=== PATIENT | female | born 1940 | race Caucasian/White ===

== ENCOUNTER 2017-04-29 12:09 | Inpatient (IN) | payer OTHER, MEDICARE ==
[~2017-04-29] VITALS: Ht 154.9 cm; Wt 52.0 kg
[2017-04-29 12:10] VITALS: BP 188/95; PULSE 91; RESP 18; TEMP 99.1; O2SAT 99
[2017-04-29 12:56] VITALS: O2SAT 98
[2017-04-29] MEDS ORDERED: ACETAMINOPHEN/HYDROcodone 325 MG/7.5 MG TAB PO ONE (13:00)
[2017-04-29] MEDS ORDERED: SODIUM CHLORIDE 0.9% FLUSH 10 ML FLUSH IVF PRN (13:00)
--- NOTE | 2017-04-29 13:05 | PD ---
HPI Chief Complaint: Medical Clearance Time Seen by Provider: 12:48 Travel History International Travel<30 days: No Contact w/Intl Traveler<30days: No Traveled to known affect area: No History of Present Illness HPI 77-year-old female brought in from home after being seen by her orthopedist, Dr. Carr, after reading her x-rays done yesterday at [facility] showing a right femoral neck fracture, and right scapular fracture status post fall 1 week ago. Patient has not had any pain medications prior to this. She is otherwise in no acute distress. She's been functioning at home since her fall. She states no other significant medical history. He denies abdominal pain, chest pain, shortness of breath. She denies numbness or tingling in the right lower extremity. She states no head injury, headache, loss of consciousness, dizziness, or other symptoms. Pain is currently 8 out of 10. Patient arrived with admission orders from Dr. Carr, but she is awaiting mental placement after medical clearance here in the ED. She has no known drug allergies. [facility] Social History Alcohol Use: No Tobacco Use: No Allergies-Medications (Allergen,Severity, Reaction): Coded Allergies: No Known Allergies (Unverified , 04/29/17) Review of Systems Except as stated in HPI: all other systems reviewed are Neg General / Constitutional: No: Fever Eyes: No: Visual changes HENT: No: Headaches Cardiovascular: No: Chest Pain or Discomfort Respiratory: No: Shortness of Breath Gastrointestinal: No: Abdominal Pain Genitourinary: No: Dysuria Musculoskeletal: Positive: Myalgias, Arthralgias, Limited ROM, Pain Skin: No Rash Neurologic: No: Weakness Psychiatric: No: Depression Endocrine: No: Polydipsia Hematologic/Lymphatic: No: Easy Bruising Physical Exam Narrative GENERAL: Patient appears in mild distress. SKIN: Warm and dry. Color. Normal turgor. No rash. HEAD: Atraumatic. Normocephalic. Nontender. EYES: Pupils equal and round. No scleral icterus. No injection or drainage. ENT: No nasal bleeding or discharge. Mucous membranes pink and moist. Pharynx is clear. Airway is patent. NECK: Trachea midline. Supple nontender. CARDIOVASCULAR: Regular rate and rhythm. RESPIRATORY: No accessory muscle use. Clear to auscultation. Breath sounds equal bilaterally. GASTROINTESTINAL: Abdomen soft, non-tender, nondistended. Hepatic and splenic margins not palpable. MUSCULOSKELETAL: Extremities without clubbing, cyanosis, or edema. Right lower extremity is somewhat shortened and internally rotated. Age motion is significantly limited secondary to pain in the right hip. Patient also has pain in the right posterior shoulder consistent with her diagnosed injury. Movement of the right upper extremity in terms of her elbow and hand and wrist is normal. Strength is normal both upper extremities. NEUROLOGICAL: Awake and alert. No obvious cranial nerve deficits. Motor grossly within normal limits. Five out of 5 muscle strength in the arms and legs. Normal speech. PSYCHIATRIC: Appropriate mood and affect; insight and judgment normal. Data Data Last Documented VS Vital Signs Date Time Temp Pulse Resp B/P (MAP) Pulse Ox O2 Delivery O2 Flow Rate FiO2 04/29/17 12:56 98 04/29/17 12:10 99.1 91 18 Room Air Orders Orders Electrocardiogram (04/29/17 12:52) Complete Blood Count With Diff (04/29/17 12:52) Comprehensive Metabolic Panel (04/29/17 12:52) Prothrombin Time / Inr (Pt) (04/29/17 12:52) Act Partial Throm Time (Ptt) (04/29/17 12:52) Urinalysis - C+S If Indicated (04/29/17 12:52) Chest, Single Ap (04/29/17 12:52) Iv Access Insert/Monitor (04/29/17 12:52) Oximetry (04/29/17 12:52) Ecg Monitoring (04/29/17 12:52) Sodium Chloride 0.9% Flush (Ns Flush) (04/29/17 13:00) Acetamin-Hydrocod 325-7.5 Mg ([place] 7.5 (04/29/17 13:00) Diet Regular Basic (04/29/17 Lunch) Urine Culture (04/29/17 13:00) Ceftriaxone Inj (Rocephin Inj) (04/29/17 14:00) Admit Order (Ed Use Only) (04/29/17 13:45) Labs Laboratory Tests Test 04/29/17 13:00 White Blood Count 6.3 TH/MM3 Red Blood Count 4.70 MIL/MM3 Hemoglobin 14.2 GM/DL Hematocrit 42.8 % Mean Corpuscular Volume 91.1 FL Mean Corpuscular Hemoglobin 30.3 PG Mean Corpuscular Hemoglobin Concent 33.2 % Red Cell Distribution Width 15.1 % Platelet Count 302 TH/MM3 Mean Platelet Volume 7.2 FL Neutrophils (%) (Auto) 70.1 % Lymphocytes (%) (Auto) 19.9 % Monocytes (%) (Auto) 7.6 % Eosinophils (%) (Auto) 1.4 % Basophils (%) (Auto) 1.0 % Neutrophils # (Auto) 4.4 TH/MM3 Lymphocytes # (Auto) 1.3 TH/MM3 Monocytes # (Auto) 0.5 TH/MM3 Eosinophils # (Auto) 0.1 TH/MM3 Basophils # (Auto) 0.1 TH/MM3 CBC Comment DIFF FINAL Differential Comment Prothrombin Time 10.7 SEC Prothromb Time International Ratio 1.0 RATIO Activated Partial Thromboplast Time 28.4 SEC Urine Color YELLOW Urine Turbidity HAZY Urine pH 6.0 Urine Specific [place] 1.019 Urine Protein 30 mg/dL Urine Glucose (UA) NEG mg/dL Urine Ketones NEG mg/dL Urine Occult Blood NEG Urine Nitrite NEG Urine Bilirubin NEG Urine Urobilinogen LESS THAN 2.0 MG/DL Urine Leukocyte Esterase LARGE Urine RBC 7 /hpf Urine WBC 94 /hpf Urine WBC Clumps FEW Urine Squamous Epithelial Cells 19 /hpf Urine Transitional Epithelial Cells <1 /hpf Urine Bacteria FEW /hpf Urine Hyaline Casts 2 /lpf Urine Mucus FEW /lpf Microscopic Urinalysis Comment CATH-CULTURE IND Blood Urea Nitrogen 16 MG/DL Creatinine 1.07 MG/DL Random Glucose 113 MG/DL Total Protein 7.4 GM/DL Albumin 3.3 GM/DL Calcium Level 8.9 MG/DL Alkaline Phosphatase 131 U/L Aspartate Amino Transf (AST/SGOT) 16 U/L Alanine Aminotransferase (ALT/SGPT) 22 U/L Total Bilirubin 0.3 MG/DL Sodium Level 141 MEQ/L Potassium Level 3.3 MEQ/L Chloride Level 110 MEQ/L Carbon Dioxide Level 21.5 MEQ/L Anion Gap 10 MEQ/L Estimat Glomerular Filtration Rate 50 ML/MIN [facility] Medical Decision Making Medical Screen Exam Complete: Yes Emergency Medical Condition: Yes Medical Record Reviewed: Yes Differential Diagnosis Recent fall. Right hip fracture. Right clavicle fracture. Narrative Course Patient appears medically stable at time of exam. EKG is ordered. EKG shows sinus rhythm without significant changes. Chest x-ray is ordered. Laboratory includes CBC, CMP, urinalysis, and IV access is obtained. Patient declined Rich catheter to this time. Patient is given Lortab 7.5/325 by mouth. Regular diet is ordered. Once patient is medically cleared she'll be admitted for orthopedic surgery. CBC is unremarkable. Coagulation studies are unremarkable. CMP unremarkable except for potassium 3.3, creatinine is 1.07, GFR 50, random glucose 113, and slightly low at 3.3. Patient is given 20 mEq KCl by mouth. Urinalysis shows large WBCs, with 94 WBCs per high-power field. Patient is given Rocephin 1000 mg IV. Call was placed to the hospitalist residents for admission. Diagnosis Primary Impression: Closed right hip fracture Qualified Codes: S72.001A - Fracture of unspecified part of neck of right femur, initial encounter for closed fracture Additional Impressions: Closed right scapular fracture Qualified Codes: S42.101A - Fracture of unspecified part of scapula, right shoulder, initial encounter for closed fracture Urinary tract infection Qualified Codes: N30.00 - Acute cystitis without hematuria Admitting Information Admitting Physician Requests: Admit Condition: Stable Heriberto Claire Apr 29, 2017 13:05
[2017-04-29 13:21] LABS: AUTOMATED NEUTROPHIL # 4.4 TH/MM3 (1.8-7.7); BASOPHIL # 0.1 TH/MM3 (0-0.2); EOSINOPHIL # 0.1 TH/MM3 (0-0.4); EOSINOPHIL % 1.4 % (0.0-4.0); HEMATOCRIT 42.8 % (35.0-46.0); HEMO FLAGS DIFF FINAL; LYMPH % 19.9 % (9.0-44.0); LYMPHOCYTE # 1.3 TH/MM3 (1.0-4.8); MEAN CELL VOLUME 91.1 FL (80.0-100.0); MEAN CORPUSCULAR HEMOGLOBIN 30.3 PG (27.0-34.0); MEAN CORPUSCULAR HGB CONC 33.2 % (32.0-36.0); MONO % 7.6 % (0.0-8.0); NEUT % 70.1 % (16.0-70.0); PLATELET COUNT 302 TH/MM3 (150-450); RED CELL DISTRIBUTION WIDTH 15.1 % (11.6-17.2); WHITE BLOOD COUNT 6.3 TH/MM3 (4.0-11.0)
--- NOTE | 2017-04-29 13:23 | RADRPT ---
EXAM DATE/TIME: 04/29/2017 13:16 [facility] COMPARISON: No previous studies available for comparison. INDICATIONS : Evaluate for pneumonia, pneumothorax, or communicable disease. Pre-op for hip surgery 04/30/2017. MEDICAL HISTORY : Crohn's disease. SURGICAL HISTORY : Colon resection. ENCOUNTER: Initial ACUITY: 1 day PAIN SCORE: 0/10 LOCATION: Bilateral chest FINDINGS: A single view of the chest demonstrates the lungs to be symmetrically aerated without evidence of mas s, infiltrate or effusion. There is hyperaeration of the lung porras bilaterally. The cardiomediasti nal contours are unremarkable. Osseous structures are intact. CONCLUSION: No acute disease. Rodo Drummond MD on April 29, 2017 at 13:21 Board Certified Radiologist. This report was verified electronically.
[2017-04-29 13:26] LABS: BACTERIA, URINE FEW /hpf; BLOOD, URINE NEG (NEG); COMMENT (UR) CATH-CULTURE IND; CULTURE IF INDICATED CATH CULTURE IND; GLUCOSE,URINE NEG (NEG); HYALINE CAST, URINE 2 /lpf (RARE); KETONE, URINE NEG (NEG); MUCUS URINE FEW /lpf (OCC); NITRITE,URINE NEG (NEG); SQUAMOUS EPITHELIAL CELL URINE 19 /hpf (0-5); TRANSITIONAL EPI CELLS, URINE <1 /hpf; URINE COLOR YELLOW (YELLW/STRAW)
[2017-04-29 13:30] LABS: ALT (GPT) 22 U/L (10-53); ANION GAP 10 MEQ/L (5-15); APTT (PATIENT) 28.4 SEC (24.3-30.1); AST (GOT) 16 U/L (15-37); BICARBONATE 21.5 MEQ/L (21.0-32.0); BLOOD UREA NITROGEN 16 MG/DL (7-18); CHLORIDE 110 MEQ/L (98-107); GLOMERULAR FILTRATION RATE 50 ML/MIN (>89); POTASSIUM 3.3 MEQ/L (3.5-5.1); PROTHROMBIN TIME - PATIENT 10.7 SEC (9.8-11.6); SODIUM (NA) 141 MEQ/L (136-145)
[2017-04-29 13:33] LABS: ALKALINE PHOSPHATASE 131 U/L (45-117); TOTAL BILIRUBIN ADULT 0.3 MG/DL (0.2-1.0)
[2017-04-29] MEDS ORDERED: cefTRIAXone INJ 1,000 MG in SODIUM CHLORIDE 0.9% INJ 100 ML IV ONE (14:00)
--- NOTE | 2017-04-29 14:06 | HHI.HP ---
HPI Service Family Medicine Primary Care Physician Unknown Admission Diagnosis Right hip Fracture/Right Scapular fracture/UTI Diagnoses: International Travel<30 Days: No Contact w/Intl Traveler<30days: No Known Affected Area: No History of Present Illness slipped on her kitchen floor and broke her right femur and scapula on 04/22. She landed on her right side, hit her head, shoulder, and hip. Went to her PCP a few days later, who [facility] who took XRs. She was referred to Ortho. She saw him today who sent her to the hospital for surgery. Her shoulder has been sore. She has full ROM, no numbness/tingling, no weakness. It has been hard to walk so has been using 's old walker. Right leg feels weak, like it can't hold her weight. No numbness, but has tingling. Pain with any movement of her right leg. radiates down her medial leg to her foot. Tried Tylenol that helped a little. 10/21, throbbing like pain. Review of Systems Constitutional: DENIES: Fever, Chills Eyes: DENIES: Blurred vision Ears, nose, mouth, throat: COMPLAINS OF: Running Nose (allergies), DENIES: Tinnitus, Vertigo Respiratory: DENIES: Cough, Wheezing, Shortness of breath Cardiovascular: DENIES: Chest pain, Lower Extremity Edema Gastrointestinal: COMPLAINS OF: Diarrhea (Crohn's dz), DENIES: Abdominal pain Genitourinary: DENIES: Urinary frequency, Urgency, Dysuria Musculoskeletal: DENIES: Joint Swelling Integumentary: DENIES: Rash Neurologic: DENIES: Headache Past Family Social History Past Medical History HTN Crohn's dz- no recent flares Depression Anxiety Hyperlipidemia Past Surgical History 3x colectomies hemorrhoidectomy D&C- miscarriage appendectomy cholecystectomy broken wrists and ankles Allergies: Coded Allergies: No Known Allergies (Unverified , 04/29/17) Family History Sister- colon cancer Social History Lives in [place] for a yr, from [place] alcohol- rarely cigarettes- quit 2 years, 1 ppd for 50 yrs illicit drugs- none Physical Exam Vital Signs Vital Signs Date Time Temp Pulse Resp B/P (MAP) Pulse Ox O2 Delivery O2 Flow Rate FiO2 04/29/17 12:56 98 10/17/17 12:10 99.1 91 18 188/95 (126) 99 Room Air Physical Exam GENERAL: This is a well-nourished, well-developed patient, in no apparent distress. SKIN: No rashes, ecchymoses or lesions. Cool and dry. HEAD: Atraumatic. Normocephalic. No temporal or scalp tenderness. EYES: Pupils equal round and reactive. Extraocular motions intact. No scleral icterus. No injection or drainage. ENT: Nose without bleeding, purulent drainage or septal hematoma. Throat without erythema, tonsillar hypertrophy or exudate. Uvula midline. Airway patent. NECK: Trachea midline. No JVD or lymphadenopathy. Supple, nontender, no meningeal signs. CARDIOVASCULAR: Regular rate and rhythm without murmurs, gallops, or rubs. RESPIRATORY: Clear to auscultation. Breath sounds equal bilaterally. No wheezes , rales, or rhonchi. GASTROINTESTINAL: Abdomen soft, tenderness in suprapubic region, nondistended. No hepato-splenomegaly, or palpable masses. No guarding. MUSCULOSKELETAL: Extremities without clubbing, cyanosis, or edema. No joint tenderness, effusion, or edema noted. No calf tenderness. Negative Homans sign bilaterally. Tenderness at right hip. NEUROLOGICAL: Awake and alert.. Motor and sensory grossly within normal limits. Five out of 5 muscle strength in LUE, left UE and LEs. 1/5 in RLE. Normal speech. Laboratory Laboratory Tests Test 04/29/17 13:00 White Blood Count 6.3 Red Blood Count 4.70 Hemoglobin 14.2 Hematocrit 42.8 Mean Corpuscular Volume 91.1 Mean Corpuscular Hemoglobin 30.3 Mean Corpuscular Hemoglobin Concent 33.2 Red Cell Distribution Width 15.1 Platelet Count 302 Mean Platelet Volume 7.2 Neutrophils (%) (Auto) 70.1 Lymphocytes (%) (Auto) 19.9 Monocytes (%) (Auto) 7.6 Eosinophils (%) (Auto) 1.4 Basophils (%) (Auto) 1.0 Neutrophils # (Auto) 4.4 Lymphocytes # (Auto) 1.3 Monocytes # (Auto) 0.5 Eosinophils # (Auto) 0.1 Basophils # (Auto) 0.1 CBC Comment DIFF FINAL Differential Comment Prothrombin Time 10.7 Prothromb Time International Ratio 1.0 Activated Partial Thromboplast Time 28.4 Urine Color YELLOW Urine Turbidity HAZY Urine pH 6.0 Urine Specific [place] 1.019 Urine Protein 30 Urine Glucose (UA) NEG Urine Ketones NEG Urine Occult Blood NEG Urine Nitrite NEG Urine Bilirubin NEG Urine Urobilinogen LESS THAN 2.0 Urine Leukocyte Esterase LARGE Urine RBC 7 Urine WBC 94 Urine WBC Clumps FEW Urine Squamous Epithelial Cells 19 Urine Transitional Epithelial Cells <1 Urine Bacteria FEW Urine Hyaline Casts 2 Urine Mucus FEW Microscopic Urinalysis Comment CATH-CULTURE IND Blood Urea Nitrogen 16 Creatinine 1.07 Random Glucose 113 Total Protein 7.4 Albumin 3.3 Calcium Level 8.9 Alkaline Phosphatase 131 Aspartate Amino Transf (AST/SGOT) 16 Alanine Aminotransferase (ALT/SGPT) 22 Total Bilirubin 0.3 Sodium Level 141 Potassium Level 3.3 Chloride Level 110 Carbon Dioxide Level 21.5 Anion Gap 10 Estimat Glomerular Filtration Rate 50 Date/Time Source Procedure Growth Status 04/29/17 13:00 Urine Catheterized Urine Urine Culture Pending Received Result Diagram: 04/29/17 1300 04/29/17 1300 Imaging Last Impressions Chest X-Ray 04/29/17 1252 Signed Impressions: Service Date/Time: Saturday, April 29, 2017 13:16 - CONCLUSION: No acute disease. Rodo Drummond MD Caprini VTE Risk Assessment Caprini VTE Risk Assessment: Mod/High Risk (score >= 2) Caprini Risk Assessment Model Point Value = 1 Point Value = 2 Point Value = 3 Point Value = 5 Age 41-60 Minor surgery BMI > 25 kg/m2 Swollen legs Varicose veins or History of unexplained or recurrent spontaneous Oral contraceptives or hormone replacement Sepsis (< 1 month) Serious lung disease, including pneumonia (< 1 month) Abnormal pulmonary function Acute myocardial infarction Congestive heart failure (< 1 month) History of inflammatory bowel disease Medical patient at bed rest Age 61-74 Arthroscopic surgery Major open surgery (> 45 min) Laparoscopic surgery (> 45 min) Malignancy Confined to bed (> 72 hours) Immobilizing plaster cast Central venous access Age >= 75 History of VTE Family history of VTE Factor V Leiden Prothrombin [id number] Lupus anticoagulant Anticardiolipin antibodies Elevated serum homocysteine Heparin-induced thrombocytopenia Other congenital or acquired thrombophilia Stroke (< 1 month) Elective arthroplasty Hip, pelvis, or leg fracture Acute spinal cord injury (< 1 month) Prophylaxis Regimen Total Risk Factor Score Risk Level Prophylaxis Regimen 0-1 Low Early ambulation 2 Moderate Order ONE of the following: *Sequential Compression Device (SCD) *Heparin 5000 units SQ BID 3-4 Higher Order ONE of the following medications: *Heparin 5000 units SQ TID *Enoxaparin/Lovenox 40 mg SQ daily (WT < 150 kg, CrCl > 30 mL/min) *Enoxaparin/Lovenox 30 mg SQ daily (WT < 150 kg, CrCl > 10-29 mL/min) *Enoxaparin/Lovenox 30 mg SQ BID (WT < 150 kg, CrCl > 30 mL/min) AND/OR *Sequential Compression Device (SCD) 5 or more Highest Order ONE of the following medications: *Heparin 5000 units SQ TID (Preferred with Epidurals) *Enoxaparin/Lovenox 40 mg SQ daily (WT < 150 kg, CrCl > 30 mL/min) *Enoxaparin/Lovenox 30 mg SQ daily (WT < 150 kg, CrCl > 10-29 mL/min) *Enoxaparin/Lovenox 30 mg SQ BID (WT < 150 kg, CrCl > 30 mL/min) AND *Sequential Compression Device (SCD) Assessment and Plan Assessment and Plan It is noted that Dr. Carr changed the attending name from Lala to himself and consulted [facility]. [facility] will continue medical management with Dr. Carr to continue as attending. Discussed with Dr. Josette Hall and Dr. Dobson. Physician Certification 2 Midnight Certification Type: Admission for Inpatient Services Order for Inpatient Services The services are ordered in accordance with Medicare regulations or non- Medicare payer requirements, as applicable. In the case of services not specified as inpatient-only, they are appropriately provided as inpatient services in accordance with the 2-midnight benchmark. Estimated LOS (days): 2 days is the estimated time the patient will need to remain in the hospital, assuming treatment plan goals are met and no additional complications. Post-Hospital Plan: Home Treasure Andujar MD R1 Apr 29, 2017 14:06
[2017-04-29] MEDS ORDERED: SODIUM CHLORIDE 0.9% FLUSH 10 ML FLUSH IV FLUSH PRN (14:30)
[2017-04-29] MEDS ORDERED: oxyCODONE/ACETAMINOPHEN 10 MG/325 MG TAB PO PRN (14:30)
[2017-04-29] MEDS ORDERED: LACTULOSE SYRUP 20 GM/30 ML CUP PO PRN (14:30)
[2017-04-29] MEDS ORDERED: MAGNESIUM HYDROXIDE SUSP 30 ML CUP PO PRN (14:30)
[2017-04-29] MEDS ORDERED: ONDANSETRON HCL 4 MG/2 ML VIAL IVP PRN (14:30)
[2017-04-29] MEDS ORDERED: BISACODYL 10 MG SUPP RECTAL PRN (14:30)
[2017-04-29] MEDS ORDERED: ACETAMINOPHEN 325 MG TAB PO PRN ×2 (14:30)
[2017-04-29] MEDS ORDERED: NALOXONE HCL 0.4 MG/ML AMP IV PUSH PRN ×2 (14:30)
[2017-04-29] MEDS ORDERED: SENNOSIDES 8.6 MG TAB PO PRN (14:30)
[2017-04-29] MEDS ORDERED: oxyCODONE/ACETAMINOPHEN 5 MG/325 MG TAB PO PRN (14:30)
[2017-04-29] MEDS ORDERED: MORPHINE SULFATE 4 MG/ML INJ IV PUSH PRN (14:30)
[2017-04-29] MEDS ORDERED: CHOL5000 PO (14:39)
[2017-04-29] MEDS ORDERED: TRAM50TA PO (14:39)
[2017-04-29] MEDS ORDERED: DIAZ5TAB PO (14:46)
[2017-04-29] MEDS ORDERED: AMBI10TA PO (14:46)
[2017-04-29] MEDS ORDERED: LOSA100T PO (14:46)
[2017-04-29] MEDS ORDERED: LEVO50TA4 PO (14:46)
[2017-04-29] MEDS ORDERED: LANS30CA PO (14:46)
[2017-04-29] MEDS ORDERED: TEMA15CA PO (14:46)
[2017-04-29] MEDS ORDERED: VENL100T PO (14:52)
[2017-04-29] MEDS ORDERED: ARIP1TAB5 PO (14:52)
[2017-04-29 15:24] VITALS: BP 181/76; PULSE 75; RESP 20
[2017-04-29 15:35] VITALS: BP 158/78; PULSE 76; RESP 16; TEMP 96.9; O2SAT 98
[2017-04-29] MEDS ORDERED: LEVOFLOXACIN 750 MG PREMIX INJ 150 ML IV ONE (16:00)
[2017-04-29] MEDS ORDERED: TRANEXAMIC ACID IV SCH ×3 (16:30→19:30)
[2017-04-29] MEDS ORDERED: SODIUM CHLORIDE 0.9% IV SCH ×3 (16:30→19:30)
[2017-04-29] MEDS ORDERED: ceFAZolin 2 GM PREMIX 50 ML IV SCH (16:45)
[2017-04-29] MEDS ORDERED: POVIDONE IODINE 7.5% SCRUB 118 ML BOTTLE TOPICAL SCH (16:45)
[2017-04-29] MEDS ORDERED: ACETAMINOPHEN/HYDROcodone 325 MG/7.5 MG TAB PO PRN (16:45)
[2017-04-29] MEDS ORDERED: ROPIVACAINE PERI-ARTICULAR INJECTION. P-ARTICULR SCH ×10 (16:45→17:00)
[2017-04-29] MEDS ORDERED: VANCOMYCIN 1000 MG/NS 250 ML (for <70 kg) IV SCH ×2 (16:45)
[2017-04-29] MEDS ORDERED: MORPHINE SULFATE 4 MG/ML INJ IV PRN (16:45)
[2017-04-29] MEDS: SODIUM CHLOR 0.9% 1000 ML INJ 1,000 ML IV SCH (17:07)
[2017-04-29] MEDS ORDERED: ARIPiprazole 10 MG TAB PO SCH (19:15)
[2017-04-29] MEDS ORDERED: TEMAZEPAM 15 MG CAP PO PRN (19:15)
--- NOTE | 2017-04-29 19:16 | PD.CONS ---
HPI Service [facility] Hospitalists Consult Requested By Orthopedic surgery Reason for Consult Medical management Primary Care Physician Unknown Diagnoses: (1) Anxiety and depression (2) Hypothyroidism (3) Hypertension (4) Urinary tract infection (5) Closed right scapular fracture (6) Closed right hip fracture History of Present Illness Ms. Alcaraz is a pleasant 77-year-old female with a history of hypertension, hypothyroidism, anxiety and depression who presented to the emergency department due to right femoral neck fracture and right scapular fracture. On April 22, 2017 patient was walking in her kitchen and she slipped on the tile floor on her right side. She denies any chest pain, lightheadedness or dizziness prior to this fall. This morning she was seen by orthopedic surgeon Dr. Carr who after reviewing imaging studies recommended patient to come to the emergency department for admission. Patient denies any shortness of breath, cough, fever or chills. He denies any abdominal pain, changes in bowel habits. Hospitalist service was consulted for medical management including possible UTI. Upon further discussion, it appears that patient has been experiencing increased urinary frequency including hesitation. She denies dysuria or hematuria. Review of Systems Except as stated in HPI: all other systems reviewed are Neg Past Family Social History Allergies: Coded Allergies: No Known Allergies (Unverified , 04/29/17) Past Medical History Hypertension Anxiety and depression Hypothyroidism Insomnia Past Surgical History 3 bowel resection due to Crohn's disease Pilonidal cyst removal Right wrist surgery Reported Medications Losartan 100 mg daily explained tramadol 50 mg every 8 hours when necessary Venlafaxine 200 mg by mouth daily Aripiprazole 10 mg daily Diazepam 5 mg daily Levothyroxine 50 g by mouth daily Temazepam 15 mg by mouth daily at bedtime Vitamin D3 5000 units by mouth weekly. Family History Father - Parkinson's disease. Mother - Alzheimer's disease. Social History Patient denies using tobacco, alcohol, illicit drugs. Physical Exam Vital Signs Vital Signs Date Time Temp Pulse Resp B/P (MAP) Pulse Ox O2 Delivery O2 Flow Rate FiO2 04/29/17 15:53 04/29/17 15:24 75 20 181/76 (111) 04/29/17 12:56 98 04/29/17 12:10 99.1 91 18 188/95 (126) 99 Room Air Physical Exam GENERAL: This is a well-nourished, well-developed patient, in no apparent distress. SKIN: No rashes, ecchymoses or lesions. Warm and dry. HEAD: Atraumatic. Normocephalic. No temporal or scalp tenderness. EYES: Pupils equal round and reactive. No injection or drainage. ENT: Nose without bleeding, purulent drainage or septal hematoma. Airway patent. NECK: Trachea midline. No lymphadenopathy. Supple, nontender, no meningeal signs. CARDIOVASCULAR: Regular rate and rhythm without murmurs, gallops, or rubs. No JVD. RESPIRATORY: Clear to auscultation. Breath sounds equal bilaterally. No wheezes , rales, or rhonchi. GASTROINTESTINAL: Abdomen soft, non-tender, nondistended. No guarding. MUSCULOSKELETAL: Extremities without clubbing, cyanosis, or edema. Unable to lift right lower ext due to pain. Able to move all toes. No significant pain on right shoulder or RUE movement. NEUROLOGICAL: Awake and alert. Cranial nerves II through XII intact. No focal neurological deficits. Normal speech. Laboratory Laboratory Tests Test 04/29/17 13:00 White Blood Count 6.3 Red Blood Count 4.70 Hemoglobin 14.2 Hematocrit 42.8 Mean Corpuscular Volume 91.1 Mean Corpuscular Hemoglobin 30.3 Mean Corpuscular Hemoglobin Concent 33.2 Red Cell Distribution Width 15.1 Platelet Count 302 Mean Platelet Volume 7.2 Neutrophils (%) (Auto) 70.1 Lymphocytes (%) (Auto) 19.9 Monocytes (%) (Auto) 7.6 Eosinophils (%) (Auto) 1.4 Basophils (%) (Auto) 1.0 Neutrophils # (Auto) 4.4 Lymphocytes # (Auto) 1.3 Monocytes # (Auto) 0.5 Eosinophils # (Auto) 0.1 Basophils # (Auto) 0.1 CBC Comment DIFF FINAL Differential Comment Prothrombin Time 10.7 Prothromb Time International Ratio 1.0 Activated Partial Thromboplast Time 28.4 Urine Color YELLOW Urine Turbidity HAZY Urine pH 6.0 Urine Specific [place] 1.019 Urine Protein 30 Urine Glucose (UA) NEG Urine Ketones NEG Urine Occult Blood NEG Urine Nitrite NEG Urine Bilirubin NEG Urine Urobilinogen LESS THAN 2.0 Urine Leukocyte Esterase LARGE Urine RBC 7 Urine WBC 94 Urine WBC Clumps FEW Urine Squamous Epithelial Cells 19 Urine Transitional Epithelial Cells <1 Urine Bacteria FEW Urine Hyaline Casts 2 Urine Mucus FEW Microscopic Urinalysis Comment CATH-CULTURE IND Blood Urea Nitrogen 16 Creatinine 1.07 Random Glucose 113 Total Protein 7.4 Albumin 3.3 Calcium Level 8.9 Alkaline Phosphatase 131 Aspartate Amino Transf (AST/SGOT) 16 Alanine Aminotransferase (ALT/SGPT) 22 Total Bilirubin 0.3 Sodium Level 141 Potassium Level 3.3 Chloride Level 110 Carbon Dioxide Level 21.5 Anion Gap 10 Estimat Glomerular Filtration Rate 50 Date/Time Source Procedure Growth Status 04/29/17 13:00 Urine Catheterized Urine Urine Culture Pending Received Result Diagram: 04/29/17 1300 04/29/17 1300 Imaging Last Impressions Chest X-Ray 04/29/17 1252 Signed Impressions: Service Date/Time: Saturday, April 29, 2017 13:16 - CONCLUSION: No acute disease. Rodo Drummond MD Assessment and Plan Problem List: (1) Closed right scapular fracture ICD Code: S42.101A - Fracture of unspecified part of scapula, right shoulder, initial encounter for closed fracture Status: Acute (2) Closed right hip fracture ICD Code: S72.001A - Fracture of unspecified part of neck of right femur, initial encounter for closed fracture Status: Acute (3) Urinary tract infection ICD Code: N39.0 - Urinary tract infection, site not specified Status: Acute (4) Hypothyroidism ICD Code: E03.9 - Hypothyroidism, unspecified (5) Hypertension ICD Code: I10 - Essential (primary) hypertension (6) Anxiety and depression ICD Code: F41.8 - Other specified anxiety disorders Assessment and Plan Ms. Alcaraz is a pleasant 77-year-old female with a history of hypertension, hypothyroidism who was admitted to the hospital after her orthopedic surgeon reviewed imaging studies that indicated a right femoral neck fracture as well as right scapular fracture as a result of a mechanical fall about a week ago on 04/22/2017. Patient reports no chest pain, dizziness or lightheadedness prior to her fall. Upon further discussion she does report increased urinary frequency and hesitation but no dysuria or hematuria. She also reports no fever or chills. - Right femoral neck fracture - Right scapular fracture - Orthopedic surgeon, Dr. Carr plans to do surgery in the morning on 04/30. - Continue heart healthy diet for now. Nothing by mouth after midnight except medications. - Continue acetaminophen, Percocet when necessary for pain. - Bowel regimens are ordered. - Decreased ablation per orthopedic surgeon - Probable urinary tract infection - Will follow urine culture. Continue ceftriaxone 1 g every 24 hours. - Hypertension - Hypothyroidism - Continue levothyroxine 50 g daily. - Continue losartan 100 mg by mouth daily. Patient did not take her a.m. medications. We'll continue BP meds tonight. - Patient's blood pressure has been somewhat elevated. This could be due to not taking her regular blood pressure medications as well as anxiety. - Anxiety and depression - Continue Abilify 10 mg daily and venlafaxine 200 mg by mouth daily. - Patient takes diazepam 5 mg. Since starting other medications today, we' ll continue diazepam tomorrow. - Insomnia - continue temazepam 15 mg by mouth daily at bedtime. Full code. SCDs. Pharmacological prophylaxis after surgery tomorrow. Thank you for the consult. We'll continue to follow this patient with you. Problem Qualifiers (1) Urinary tract infection: Qualified Codes: N30.00 - Acute cystitis without hematuria (2) Closed right scapular fracture: Qualified Codes: S42.101A - Fracture of unspecified part of scapula, right shoulder, initial encounter for closed fracture (3) Closed right hip fracture: Qualified Codes: S72.001A - Fracture of unspecified part of neck of right femur , initial encounter for closed fracture Neeraj Shah DO Apr 29, 2017 7:16 pm
[2017-04-29 20:00] VITALS: BP 188/82; PULSE 71; RESP 17; TEMP 96.7; O2SAT 95
[2017-04-29] MEDS: DOCUSATE SODIUM 50 MG/SENNA 8.6 MG TAB PO SCH (21:00)
[2017-04-29] MEDS: SODIUM CHLORIDE 0.9% FLUSH 10 ML FLUSH IV FLUSH SCH (21:00)
[2017-04-29] MEDS: POTASSIUM CHLORIDE 10 MEQ CONTROLLED RELEASE TAB PO SCH (21:01)
[2017-04-29] MEDS: VENLAFAXINE HCL XR 75 MG CAP PO SCH (21:01)
[2017-04-29] MEDS: LOSARTAN 50 MG TAB PO SCH (21:02)
[2017-04-29 22:17] LABS: HEMATOCRIT 38.4 % (35.0-46.0); MEAN CELL VOLUME 90.6 FL (80.0-100.0); MEAN CORPUSCULAR HEMOGLOBIN 30.2 PG (27.0-34.0); MEAN CORPUSCULAR HGB CONC 33.3 % (32.0-36.0); PLATELET COUNT 303 TH/MM3 (150-450); RED BLOOD COUNT 4.24 MIL/MM3 (4.00-5.30); RED CELL DISTRIBUTION WIDTH 14.7 % (11.6-17.2); REVIEW FLAG FINAL; WHITE BLOOD COUNT 5.1 TH/MM3 (4.0-11.0)
[2017-04-29] MEDS ORDERED: INSULIN HUMAN REGULAR 1,000 UNITS/10 ML VIAL SQ PRN (22:30)
[2017-04-29] MEDS ORDERED: LACTATED RINGER'S 1000 ML IV PRN (22:30)
[2017-04-29] MEDS ORDERED: CHLORHEXIDINE GLUCONATE 2 % 1 PACK (2 CLOTHS) TOPICAL PRN (22:30)
[2017-04-29] MEDS ORDERED: SODIUM CHLORID 0.9% 500 ML IV PRN (22:30)
[2017-04-29] MEDS ORDERED: POVIDONE IODINE 5% (ANTISEPSIS KIT) 4 APPLICATIONS EACH NARE PRN (22:30)
[2017-04-29 22:46] LABS: ANION GAP 8 MEQ/L (5-15); AST (GOT) 15 U/L (15-37); BICARBONATE 23.6 MEQ/L (21.0-32.0); BLOOD UREA NITROGEN 14 MG/DL (7-18); CHLORIDE 110 MEQ/L (98-107); GLOMERULAR FILTRATION RATE 61 ML/MIN (>89); POTASSIUM 3.3 MEQ/L (3.5-5.1); SODIUM (NA) 142 MEQ/L (136-145)
[2017-04-29 22:47] LABS: ALT (GPT) 19 U/L (10-53)
[2017-04-29 22:50] LABS: ALKALINE PHOSPHATASE 111 U/L (45-117); TOTAL BILIRUBIN ADULT 0.3 MG/DL (0.2-1.0)
[2017-04-30 00:40] VITALS: BP 182/77; PULSE 77; RESP 17; TEMP 97.3; O2SAT 97
[2017-04-30] MEDS ORDERED: MORPHINE SULFATE 2 MG/ML INJ IV PUSH ONE (02:45)
[2017-04-30 04:45] VITALS: BP 173/80; PULSE 80; RESP 17; TEMP 96.8; O2SAT 97
[2017-04-30] MEDS: LEVOTHYROXINE SODIUM 50 MCG TAB PO SCH (06:05)
[2017-04-30] MEDS: POTASSIUM CHLORIDE 10 MEQ CONTROLLED RELEASE TAB PO SCH ×3 (06:05→21:18)
[2017-04-30] MEDS: SODIUM CHLOR 0.9% 1000 ML INJ 1,000 ML IV SCH ×4 (06:10→19:17)
[2017-04-30 08:00] VITALS: BP 173/80; PULSE 82; RESP 18; TEMP 97.8; O2SAT 95
[2017-04-30] MEDS ORDERED: DIAZEPAM 5 MG TAB PO SCH (09:00)
[2017-04-30] MEDS: SODIUM CHLORIDE 0.9% FLUSH 10 ML FLUSH IV FLUSH SCH (09:00)
[2017-04-30] MEDS: ARIPiprazole 5 MG TAB PO SCH ×2 (09:00→17:07)
[2017-04-30 09:03] LABS: AUTOMATED NEUTROPHIL # 2.6 TH/MM3 (1.8-7.7); BASOPHIL % 0.9 % (0.0-2.0); EOSINOPHIL % 1.1 % (0.0-4.0); HEMATOCRIT 38.4 % (35.0-46.0); HEMO FLAGS DIFF FINAL; LYMPH % 15.7 % (9.0-44.0); LYMPHOCYTE # 0.5 TH/MM3 (1.0-4.8); MEAN CELL VOLUME 90.7 FL (80.0-100.0); MEAN CORPUSCULAR HEMOGLOBIN 30.3 PG (27.0-34.0); MEAN CORPUSCULAR HGB CONC 33.4 % (32.0-36.0); MONO % 7.8 % (0.0-8.0); NEUT % 74.5 % (16.0-70.0); PLATELET COUNT 211 TH/MM3 (150-450); RED BLOOD COUNT 4.24 MIL/MM3 (4.00-5.30); RED CELL DISTRIBUTION WIDTH 15.1 % (11.6-17.2); WHITE BLOOD COUNT 3.5 TH/MM3 (4.0-11.0)
[2017-04-30 09:07] LABS: ANION GAP 8 MEQ/L (5-15); AST (GOT) 980 U/L (15-37); BICARBONATE 22.5 MEQ/L (21.0-32.0); BLOOD UREA NITROGEN 10 MG/DL (7-18); CHLORIDE 112 MEQ/L (98-107); GLOMERULAR FILTRATION RATE 74 ML/MIN (>89); POTASSIUM 3.3 MEQ/L (3.5-5.1); SODIUM (NA) 142 MEQ/L (136-145)
[2017-04-30 09:08] LABS: ALT (GPT) 317 U/L (10-53)
[2017-04-30 09:10] LABS: ALKALINE PHOSPHATASE 222 U/L (45-117)
--- NOTE | 2017-04-30 09:21 | MH ---
cc: MELISSA MIRELES DATE OF ADMISSION: 04/29/2017 ADMISSION DIAGNOSIS Displaced fracture of the neck of the right femur. ADDITIONAL DIAGNOSIS 1. Closed fracture neck of the glenoid (scapula). 2. Asymptomatic urinary tract infection. HISTORY OF PRESENT ILLNESS: The patient fell in her kitchen on 04/21/2017 followed by pain in her right hip and right shoulder. She was seen by her primary care physician the next day and sent for x-rays at outpatient imaging. She came to my office only yesterday and it was noted that she had these injuries and therefore, admitted to the hospital for preoperative workup and medical clearance and of course surgery today. The patient has a displaced fracture of the neck of the right femur and the best course of action is a total hip replacement arthroplasty. A screw fixation, pin fixation would have a fairly good chance of failure. We already started treatment of the asymptomatic UTI with IV antibiotics. Because of the nature of the situation, it is not possible to wait any longer to go ahead and do the procedure. Risks and hazards of the situation discussed with the patient. Informed consent obtained. No guarantees made. PERSONAL HISTORY She does not smoke or drink. PAST MEDICAL HISTORY 1. Anemia. 2. Anxiety. 3. Arthritis. 4. Depression. 5. Emphysema. 6. High blood pressure. 7. Crohn's disease. 8. Hypothyroidism. PAST SURGERIES Surgery for Crohn's disease and C-sections. ALLERGIES None. MEDICATIONS 1. Levothyroxine. 2. Losartan. 3. Vitamin D3. 4. Venlafaxine. 5. Zolpidem. PHYSICAL EXAMINATION In the office yesterday revealed the patient using a walker, partial weightbearing on the right leg. She has painful restriction range of motion right hip, particularly severe pain on internal rotation. She has palpable pedal pulses and she moves her toes well in the right foot. Right shoulder reveals good range of motion. There is tenderness over the anterior aspect of the shoulder. No neurovascular deficit in the right hand. HEAD: Normocephalic. Pupils react to light. Face symmetrical. HEART: Regular rhythm. No murmur. LUNGS: Clear to auscultation. ABDOMEN: Soft and supple. IMAGING STUDIES X-rays of the right shoulder reveals a minimally mildly impacted fracture neck of the right glenoid/scapula without any obvious intra-articular involvement. TREATMENT She will have surgery on the right hip as mentioned above. We will treat her right arm with immobilization in a sling and avoid weightbearing. Hopefully we can have her weight bear as tolerated on the right leg with a neha-walker postoperatively without having to put weight on the right upper extremity. MD MAGDI Sultana/NEELA /8:39 AM /8:46 AM
[2017-04-30] MEDS: cefTRIAXone INJ 1,000 MG in SODIUM CHLORIDE 0.9% INJ 100 ML IV SCH (09:47)
[2017-04-30] MEDS: VENLAFAXINE HCL XR 75 MG CAP PO SCH (09:48)
[2017-04-30] MEDS: LOSARTAN 50 MG TAB PO SCH (09:48)
[2017-04-30] MEDS: DOCUSATE SODIUM 50 MG/SENNA 8.6 MG TAB PO SCH ×2 (09:48→21:18)
[2017-04-30] MEDS ORDERED: INFLUENZA VIRUS VACCINE (QUADRIVALENT) 0.5 ML SYR IM ONE (10:00)
[2017-04-30] MEDS ORDERED: PNEUMOCOCCAL POLYVALENT INJ 25 MCG/0.5 ML SYR IM ONE (10:00)
[2017-04-30] MEDS ORDERED: VANCOMYCIN 1000 MG/NS 250 ML (for <70 kg) IV SCH ×2 (11:00)
[2017-04-30] MEDS ORDERED: POVIDONE IODINE 7.5% SCRUB 118 ML BOTTLE TOPICAL SCH (11:00)
[2017-04-30] MEDS ORDERED: ROPIVACAINE PERI-ARTICULAR INJECTION. P-ARTICULR SCH ×5 (11:00)
[2017-04-30] MEDS: MAGNESIUM SULFATE 1 GM PREMIX 100 ML IV SCH ×4 (11:00→21:19)
[2017-04-30] MEDS ORDERED: SODIUM CHLORIDE 0.9% IV SCH ×2 (11:00→14:00)
[2017-04-30] MEDS ORDERED: ceFAZolin 2 GM PREMIX 50 ML IV SCH (11:00)
[2017-04-30] MEDS ORDERED: TRANEXAMIC ACID IV SCH ×2 (11:00→14:00)
[2017-04-30] MEDS ORDERED: GENTAMICIN SULFATE 80 MG/2 ML VIAL ONE (11:30)
[2017-04-30] MEDS ORDERED: NEOSTIGMINE 3 MG/3 ML SYR IV ONE (12:00)
[2017-04-30] MEDS ORDERED: ONDANSETRON HCL 4 MG/2 ML VIAL IV PUSH ONE (12:00)
[2017-04-30] MEDS ORDERED: PROPOFOL 200 MG/20 ML AMP IV ONE (12:00)
[2017-04-30] MEDS ORDERED: DEXAMETHASONE SOD PHOS 4 MG/ML VIAL IV ONE (12:00)
[2017-04-30] MEDS ORDERED: LIDOCAINE HCL 1% PF 5 ML AMPULE OTHER ONE (12:00)
[2017-04-30] MEDS ORDERED: GLYCOPYRROLATE 1 MG/5 ML VIAL IV PUSH ONE (12:00)
[2017-04-30] MEDS ORDERED: LACTATED RINGER'S 1000 ML INJ 1,000 ML IV ONE (12:00)
[2017-04-30] MEDS ORDERED: ROCURONIUM INJ 50 MG/5 ML SYRINGE IV PUSH ONE (12:00)
[2017-04-30] MEDS ORDERED: ePHEDrine/NS 25 MG/5 ML SYR IV ONE (12:00)
[2017-04-30] MEDS ORDERED: TEMAZEPAM 15 MG CAP PO PRN (14:00)
[2017-04-30] MEDS ORDERED: diphenhydrAMINE HCL 50 MG/ML VIAL IV PUSH PRN (14:00)
[2017-04-30] MEDS ORDERED: ONDANSETRON HCL 4 MG/2 ML VIAL IVP PRN (14:00)
[2017-04-30] MEDS ORDERED: MORPHINE SULFATE 4 MG/ML INJ IV PRN (14:00)
[2017-04-30] MEDS ORDERED: TRANEXAMIC ACID INJ 0 MG in SODIUM CHLORIDE 0.9% INJ 100 ML IV SCH (14:00)
[2017-04-30] MEDS ORDERED: NALOXONE HCL 0.4 MG/ML AMP IV PUSH PRN (14:00)
[2017-04-30] MEDS ORDERED: SODIUM CHLORIDE 0.9% FLUSH 5 ML FLUSH IVF PRN (14:00)
[2017-04-30] MEDS ORDERED: CALCIUM CARBONATE 500 MG CHEWABLE TAB CHEW ONE (14:15)
--- NOTE | 2017-04-30 14:16 | EKG ---
Date Performed: 04/29/2017 Time Performed: 16:48:07 PTAGE: 77 years EKG: Sinus rhythm PROBABLE INFERIOR MYOCARDIAL INFARCTION , PROBABLY OLD ABNORMAL ECG PREVIOUS TRACING : 04/29/2017 13.03 DOCTOR: Jason Narvaez Interpretating Date/Time 04/30/2017 14:13:36
[2017-04-30] MEDS ORDERED: HYDR-3580 PO (14:20)
[2017-04-30] MEDS ORDERED: CALC250T PO (14:20)
[2017-04-30] MEDS ORDERED: CHOL1CAP14 PO (14:20)
--- NOTE | 2017-04-30 14:20 | EKG ---
Date Performed: 04/29/2017 Time Performed: 13:03:16 PTAGE: 77 years EKG: Sinus rhythm PROBABLE INFERIOR MYOCARDIAL INFARCTION ABNORMAL ECG PREVIOUS TRACING : 08/21/1994 18.58 DOCTOR: Jason Narvaez Interpretating Date/Time 04/30/2017 14:16:42
[2017-04-30] MEDS ORDERED: *LABETALOL HCL 100 MG/20 ML VIAL PERIprocedural Use ONLY ONE (14:30)
[2017-04-30] MEDS ORDERED: Post-op Orders (for Pharmacy) MISC XX ONE (14:30)
[2017-04-30] MEDS ORDERED: *morphine SULFATE 8 MG/ML PERIprocedure ONLY ONE (14:43)
[2017-04-30] MEDS ORDERED: DO NOT ADM ANY ANTICOAGULANT DRUGS PRN (15:15)
--- NOTE | 2017-04-30 15:30 | RADRPT ---
EXAM DATE/TIME: 04/30/2017 14:33 [facility] COMPARISON: No previous studies available for comparison. INDICATIONS : Post op right total hip. MEDICAL HISTORY : None. SURGICAL HISTORY : None. ENCOUNTER: Initial ACUITY: 1 day PAIN SCORE: 9/10 LOCATION: Right Hip FINDINGS: A two view examination of the right hip was performed. There is a total right hip arthroplasty. Both the acetabular and femoral components are appropriately positioned. No fracture CONCLUSION: Appropriate postoperative appearance of the right hip status post total arthroplasty. Jaron Craven MD on April 30, 2017 at 15:27 Board Certified Radiologist. This report was verified electronically.
[2017-04-30 16:00] VITALS: BP 123/65; PULSE 65; RESP 18; TEMP 97.1; O2SAT 99
[2017-04-30] MEDS ORDERED: LEVOFLOXACIN 750 MG PREMIX INJ 150 ML IV ONE (16:00)
[2017-04-30] MEDS: KETOROLAC TROMETHAMINE 30 MG/ML (IVP) VIAL IVP SCH ×2 (16:50→21:19)
--- NOTE | 2017-04-30 17:13 | MP ---
cc: MELISSA CARR M.D. DATE OF SURGERY: 04/30/2017 PREOPERATIVE DIAGNOSIS: Displaced fracture, neck of the right femur. POSTOPERATIVE DIAGNOSIS: Displaced fracture, neck of the right femur. Fracture neck of the right glenoid/scapula. OPERATION: 1. Total hip replacement arthroplasty, right hip using Ginny [employer] components, cup 46 millimeter Rosmery with 1 dome screw. 2. High wall +3 polyethylene liner. 3. 9 millimeter Taperloc stem, standard offset, for 32 millimeter ceramic head -[address] Carr. ANESTHESIA General TECHNIQUE After induction of general anesthesia, the patient was placed in the right lateral position, supported Biomet hip positioners. Strict lateral position was ascertained. Well leg was properly padded and protected and so was the upper extremities. Axillary roll had been placed. The right lower extremity thoroughly prepped with alcohol and ChloraPrep and draped in routine fashion. A standard lateral incision was made, centered on the greater trochanter for a posterior approach, deepened through subcutaneous tissue, fascia incised distally and fibers of gluteus rene proximally. Self-retaining retractors introduced. Hip was internally rotated followed by cutting of the capsule and short rotators in a single layer in an L-shaped fashion with the vertical limb of the L along the intertrochanteric line. The gluteus minimus was reflected off of the acetabulum and a 3/32 Steinmann pin was introduced into the bone and the pin bent to 90 degrees to measure length and offset. The fracture was evaluated, followed by femoral neck osteotomy and then removal of the head and the neck fragments. Acetabulum was examined. There did not show any obvious changes, but it was quite small. The femoral head measured about 40 to 41 millimeters. The acetabulum was now carefully deepened to eventually 46 millimeters and then a 46 millimeter Rosmery cup was impacted in place and 45 degrees of abduction, 20 degrees of anteversion. There is good fixation but because of her age and osteoporosis we put dome screws, but two of those screws had to be removed because the polyethylene would not bottom out. The one screw that was superior posterior was in good position and the polyethylene bottomed out nicely. The femoral canal was prepared in routine technique to 10 millimeter broach but the neck length was excessive, therefore about 5 millimeters of neck was removed and then re-broached with a 9 millimeter broach and everything looked good. The 9 millimeter stem was introduced in place and trial reduction carried out with a -6 head. Everything looks good including leg length and stability but when we dislocated it, the polyethylene liner popped out. This is when we went ahead and took out the two screws mentioned before. Once the polyethylene liner was impacted in satisfactory position, the femoral stem was reintroduced and a -6 ceramic head placed over it and then final reduction carried out. There is good position, alignment, and stability. Two drill holes were made in the posterior border of the greater trochanter and the short external rotators and capsule attached to the posterior margin of the greater trochanter. The fascia was closed with #2 Stratafix, subcutaneous tissue with 2-0 Vicryl, skin a 3-0 Stratafix and Steri-Strips. Dressing applied with Xeroform, 4x4s, ABD and Medipore tape. The patient transferred to the recovery room in satisfactory condition with abduction pillow on. The patient tolerated the procedure well. TRANSFUSIONS: None. COMPLICATIONS: None. POSTOPERATIVE CONDITION Satisfactory PROGNOSIS Guarded to good. The patient will have lab tests to check her nutrition levels and be put on vitamin D3 and calcium. We will have to decide if we have to put her on any biphosphonates or parathyroid hormone. MD MAGDI Sultana/ROSA /2:26 PM /4:47 PM
--- NOTE | 2017-04-30 18:21 | HHI.PR ---
Subjective Remarks Follow up for fall related right femur, right scapular fracture, UTI. Patient was seen in the morning prior to her surgery. Doing well. No acute concerns. Denies any fever, chills. Daughter at bedside. Objective Vitals Vital Signs Date Time Temp Pulse Resp B/P (MAP) Pulse Ox O2 Delivery O2 Flow Rate FiO2 04/30/17 16:00 97.1 65 18 123/65 (84) 99 04/30/17 14:48 15 04/30/17 14:20 98.2 76 16 184/77 (112) 100 Nasal Cannula 3 04/30/17 08:00 97.8 82 18 173/80 (111) 95 04/30/17 04:45 96.8 80 17 173/80 (111) 97 04/30/17 02:50 18 04/30/17 00:54 18 04/30/17 00:40 97.3 77 17 182/77 (112) 97 04/29/17 20:00 96.7 71 17 188/82 (117) 95 I/O 04/29/17 04/29/17 04/29/17 04/30/17 04/30/17 04/30/17 07:00 15:00 23:00 07:00 15:00 23:00 Intake Total 510 ml 1184 ml 2034 ml 150 ml Output Total 800 ml 750 ml Balance 510 ml 384 ml 1284 ml 150 ml Intake Oral 360 ml 0 ml IV Total 150 ml 1184 ml 534 ml 150 ml Other 1500 ml Output Urine Total 800 ml 500 ml Estimated Blood Loss 250 ml Bladder Scan Volume Amount 614 ml # Voids 3 # Bowel Movements 0 0 Result Diagram: 04/30/17 0751 04/30/17 0751 Imaging Last Impressions Hip X-Ray 04/30/17 0000 Signed Impressions: Service Date/Time: Sunday, April 30, 2017 14:33 - CONCLUSION: Appropriate postoperative appearance of the right hip status post total arthroplasty. Jaron Craven MD Chest X-Ray 04/29/17 1252 Signed Impressions: Service Date/Time: Saturday, April 29, 2017 13:16 - CONCLUSION: No acute disease. Rodo Drummond MD Objective Remarks GENERAL: Alert, NAD. SKIN: Warm and dry. HEAD: Normocephalic. EYES: No scleral icterus. No injection or drainage. NECK: Supple, trachea midline. No JVD or lymphadenopathy. CARDIOVASCULAR: Regular rate and rhythm without murmurs, gallops, or rubs. RESPIRATORY: Breath sounds equal bilaterally. No accessory muscle use. GASTROINTESTINAL: Abdomen soft, non-tender, nondistended. MUSCULOSKELETAL: No cyanosis, or edema. Unable to move right leg much. Right upper ext immobilized. BACK: Nontender without obvious deformity. No CVA tenderness. A/P Problem List: (1) Closed right scapular fracture ICD Code: S42.101A - Fracture of unspecified part of scapula, right shoulder, initial encounter for closed fracture Status: Acute (2) Closed right hip fracture ICD Code: S72.001A - Fracture of unspecified part of neck of right femur, initial encounter for closed fracture Status: Acute (3) Urinary tract infection ICD Code: N39.0 - Urinary tract infection, site not specified Status: Acute (4) Hypothyroidism ICD Code: E03.9 - Hypothyroidism, unspecified (5) Hypertension ICD Code: I10 - Essential (primary) hypertension (6) Anxiety and depression ICD Code: F41.8 - Other specified anxiety disorders Assessment and Plan Ms. Alcaraz is a pleasant 77-year-old female with a history of hypertension, hypothyroidism who was admitted to the hospital after her orthopedic surgeon reviewed imaging studies that indicated a right femoral neck fracture as well as right scapular fracture as a result of a mechanical fall about a week ago on 04/22/2017. Patient reports no chest pain, dizziness or lightheadedness prior to her fall. Upon further discussion she does report increased urinary frequency and hesitation but no dysuria or hematuria. She also reports no fever or chills. - Right femoral neck fracture - Right scapular fracture - Orthopedic surgery this morning on 04/30/2017. - Continue acetaminophen, Percocet when necessary for pain. - Bowel regimens are ordered. - DVT prophylaxis per orthopedic surgeon - urinary tract infection likely due to E. Coli. - Continue Ceftriaxone 1g Q24hrs. - Culture is growing Gram Negative Rods. Will continue to follow Culture and Sensitivity. - Transaminitis - LFTs elevated significantly. On admission, AST, ALT 16, 22 and this morning increased to 980, 317. - Sudden increase in LFTs overnight probably related medications such as Levaquin. - Hepatitis or shock liver are not likely etiology. - Will repeat chemistry panel in the AM. If continue to trend up, we will consider further work up, GI consult. - Hypomagnesemia - Mild Hypokalemia - Mg 1.2, K+ 3.3. - Will replace with IV Mg sulfate and PO KCL. - Hypertension - Hypothyroidism - Continue levothyroxine 50 g daily. - Continue losartan 100 mg by mouth daily. - Blood pressure is well controlled. - Anxiety and depression - Continue Abilify 10 mg daily and venlafaxine 200 mg by mouth daily. - Diazepam discontinued since patient does not take it. - Insomnia - continue temazepam 15 mg by mouth daily at bedtime. Full code. SCDs. Problem Qualifiers (1) Closed right scapular fracture: Qualified Codes: S42.101A - Fracture of unspecified part of scapula, right shoulder, initial encounter for closed fracture (2) Closed right hip fracture: Qualified Codes: S72.001A - Fracture of unspecified part of neck of right femur , initial encounter for closed fracture (3) Urinary tract infection: Qualified Codes: N30.00 - Acute cystitis without hematuria (4) Hypertension: Qualified Codes: I10 - Essential (primary) hypertension Neeraj Shah DO Apr 30, 2017 18:21
[2017-04-30 18:59] LABS: TRANSFERRIN 186 MG/DL (213-418)
[2017-04-30 20:40] VITALS: BP 106/55; PULSE 67; RESP 17; TEMP 97.1; O2SAT 99
[2017-04-30] MEDS: SODIUM CHLORIDE 0.9% FLUSH 5 ML FLUSH IVF SCH (21:00)
[2017-04-30] MEDS: ACETAMINOPHEN 1000 MG/100 ML VIAL IV SCH (21:20)
[2017-04-30] MEDS ORDERED: VANCOMYCIN INJ 1,000 MG in SODIUM CHLOR 0.9% 250 ML INJ 250 ML IV SCH (23:00)
[2017-05-01] VITALS (8 sets, daily range): BP systolic 116–137; BP diastolic 51–62; PULSE 69–81; RESP 17–18; TEMP 96.8–99.1; O2SAT 94–100
[2017-05-01] MEDS: KETOROLAC TROMETHAMINE 30 MG/ML (IVP) VIAL IVP SCH ×4 (04:38→21:16)
[2017-05-01] MEDS: SODIUM CHLOR 0.9% 1000 ML INJ 1,000 ML IV SCH (04:40)
[2017-05-01] MEDS: POTASSIUM CHLORIDE 10 MEQ CONTROLLED RELEASE TAB PO SCH ×3 (06:34→21:16)
[2017-05-01] MEDS: LEVOTHYROXINE SODIUM 50 MCG TAB PO SCH (06:34)
[2017-05-01 06:55] LABS: AUTOMATED NEUTROPHIL # 4.4 TH/MM3 (1.8-7.7); BASOPHIL % 0.4 % (0.0-2.0); EOSINOPHIL % 0.1 % (0.0-4.0); HEMATOCRIT 33.1 % (35.0-46.0); HEMO FLAGS DIFF FINAL; LYMPH % 8.9 % (9.0-44.0); LYMPHOCYTE # 0.5 TH/MM3 (1.0-4.8); MEAN CELL VOLUME 92.5 FL (80.0-100.0); MEAN CORPUSCULAR HEMOGLOBIN 31.1 PG (27.0-34.0); MEAN CORPUSCULAR HGB CONC 33.7 % (32.0-36.0); MONO % 8.9 % (0.0-8.0); NEUT % 81.7 % (16.0-70.0); PLATELET COUNT 210 TH/MM3 (150-450); RED BLOOD COUNT 3.58 MIL/MM3 (4.00-5.30); RED CELL DISTRIBUTION WIDTH 15.4 % (11.6-17.2); WHITE BLOOD COUNT 5.4 TH/MM3 (4.0-11.0)
[2017-05-01 07:26] LABS: BICARBONATE 23.8 MEQ/L (21.0-32.0); CALCIUM-PROTEIN CORRECTED 8.6 MG/DL (8.5-10.1); MAGNESIUM 1.9 MG/DL (1.5-2.5); POTASSIUM 4.6 MEQ/L (3.5-5.1); TOTAL BILIRUBIN ADULT 0.4 MG/DL (0.2-1.0)
--- NOTE | 2017-05-01 07:47 | PD.ORT.PN ---
Subjective Post Op Day #: 1 Pain Scale: 2 Subjective Remarks good Objective Vitals Last 72 hours Impressions Hip X-Ray 04/30/17 0000 Signed Impressions: Service Date/Time: Sunday, April 30, 2017 14:33 - CONCLUSION: Appropriate postoperative appearance of the right hip status post total arthroplasty. Jaron Craven MD Chest X-Ray 04/29/17 1252 Signed Impressions: Service Date/Time: Saturday, April 29, 2017 13:16 - CONCLUSION: No acute disease. Rodo Drummond MD Vital Signs Date Time Temp Pulse Resp B/P (MAP) Pulse Ox O2 Delivery O2 Flow Rate FiO2 05/01/17 04:15 97.4 71 17 136/57 (83) 99 05/01/17 00:50 97.2 72 17 120/61 (80) 100 04/30/17 20:40 97.1 67 17 106/55 (72) 99 04/30/17 16:00 97.1 65 18 123/65 (84) 99 04/30/17 15:45 97.8 65 16 138/65 (89) 97 Nasal Cannula 2 04/30/17 15:30 64 15 140/67 (91) 97 Nasal Cannula 2 04/30/17 15:15 66 15 145/70 (95) 96 Nasal Cannula 2 04/30/17 15:00 67 15 152/69 (96) 96 Nasal Cannula 2 04/30/17 14:48 15 04/30/17 14:45 69 15 160/72 (101) 95 Nasal Cannula 2 04/30/17 14:30 78 15 181/76 (111) 95 Nasal Cannula 2 04/30/17 14:20 98.2 76 16 184/77 (112) 100 Nasal Cannula 3 04/30/17 08:00 97.8 82 18 173/80 (111) 95 I/O 04/30/17 04/30/17 04/30/17 05/01/17 05/01/17 05/01/17 07:00 15:00 23:00 07:00 15:00 23:00 Intake Total 1184 ml 2034 ml 595.2 ml 490 ml Output Total 800 ml 750 ml 450 ml 200 ml Balance 384 ml 1284 ml 145.2 ml 290 ml Intake Oral 0 ml 240 ml 240 ml IV Total 1184 ml 534 ml 355.2 ml 250 ml Other 1500 ml Output Urine Total 800 ml 500 ml 450 ml 200 ml Estimated Blood Loss 250 ml # Bowel Movements 0 0 0 Result Diagram: 05/01/17 0632 05/01/17631 Other Results Microbiology Date/Time Source Procedure Growth Status 04/29/17 13:00 Urine Catheterized Urine Urine Culture - Preliminary Gram Negative Garrett Resulted Objective Remarks Comfortable, no complaints Moves toes up and down Arm in sling. drsgs intact rt hip Assessment & Plan Ortho Post Op Day #: 1 Problem List: Assessment and Plan POD 1 MARIAH right closed fx right glenoid in sling U/A showing gm pos rods, on ceftriaxone, to await sensitivity To SNF tomorrow/friday. Arnaldo Carr MD May 01, 2017 07:47
[2017-05-01] MEDS: VENLAFAXINE HCL XR 75 MG CAP PO SCH (08:00)
[2017-05-01] MEDS: ARIPiprazole 5 MG TAB PO SCH (08:00)
[2017-05-01] MEDS: LOSARTAN 50 MG TAB PO SCH (08:00)
[2017-05-01] MEDS: DOCUSATE SODIUM 50 MG/SENNA 8.6 MG TAB PO SCH ×2 (08:00→20:23)
[2017-05-01] MEDS: CELECOXIB 200 MG CAP PO SCH (08:00)
[2017-05-01] MEDS: SODIUM CHLORIDE 0.9% FLUSH 5 ML FLUSH IVF SCH ×2 (08:01→20:18)
[2017-05-01] MEDS: cefTRIAXone INJ 1,000 MG in SODIUM CHLORIDE 0.9% INJ 100 ML IV SCH (08:02)
[2017-05-01] MEDS: CHOLECALCIFEROL (VIT D3) LIQ 400 UNITS/ML 50 ML BOTTLE PO SCH (08:04)
[2017-05-01] MEDS: ACETAMINOPHEN 1000 MG/100 ML VIAL IV SCH ×2 (08:04→20:18)
[2017-05-01] MEDS ORDERED: PNEUMOCOCCAL POLYVALENT INJ 25 MCG/0.5 ML SYR IM ONE (10:00)
[2017-05-01] MEDS ORDERED: INFLUENZA VIRUS VACCINE (QUADRIVALENT) 0.5 ML SYR IM ONE (10:00)
[2017-05-01] MEDS: ACETAMINOPHEN/HYDROcodone 325 MG/7.5 MG TAB PO PRN ×2 (14:20→20:18)
[2017-05-01] MEDS: ENOXAPARIN SODIUM 30 MG/0.3 ML SYRINGE SQ SCH (14:22)
--- NOTE | 2017-05-01 16:47 | HHI.PR ---
Subjective Remarks Follow up for fall related right femur, right scapular fracture, UTI. Patient is doing well. Currently sitting in her chair. Denies any acute concerns. Daughter at bedside. No fever, chills. Objective Vitals Vital Signs Date Time Temp Pulse Resp B/P (MAP) Pulse Ox O2 Delivery O2 Flow Rate FiO2 05/01/17 15:31 16 05/01/17 12:00 99.1 72 18 121/51 (74) 97 05/01/17 11:15 16 05/01/17 09:50 100 05/01/17 08:47 16 05/01/17 08:01 96.9 69 18 121/59 (79) 100 05/01/17 04:15 97.4 71 17 136/57 (83) 99 05/01/17 00:50 97.2 72 17 120/61 (80) 100 04/30/17 20:40 97.1 67 17 106/55 (72) 99 I/O 04/30/17 04/30/17 04/30/17 05/01/17 05/01/17 05/01/17 07:00 15:00 23:00 07:00 15:00 23:00 Intake Total 1184 ml 2034 ml 595.2 ml 2110 ml Output Total 800 ml 750 ml 450 ml 200 ml Balance 384 ml 1284 ml 145.2 ml 1910 ml Intake Oral 0 ml 240 ml 240 ml IV Total 1184 ml 534 ml 355.2 ml 1870 ml Other 1500 ml Output Urine Total 800 ml 500 ml 450 ml 200 ml Estimated Blood Loss 250 ml # Bowel Movements 0 0 0 Result Diagram: 05/01/17 0632 05/01/17 0632 Imaging Last Impressions Hip X-Ray 04/30/17 0000 Signed Impressions: Service Date/Time: Sunday, April 30, 2017 14:33 - CONCLUSION: Appropriate postoperative appearance of the right hip status post total arthroplasty. Jaron Craven MD Chest X-Ray 04/29/17 1252 Signed Impressions: Service Date/Time: Saturday, April 29, 2017 13:16 - CONCLUSION: No acute disease. Rodo Drummond MD Objective Remarks GENERAL: Alert, NAD. SKIN: Warm and dry. HEAD: Normocephalic. EYES: No scleral icterus. No injection or drainage. NECK: Supple, trachea midline. No JVD or lymphadenopathy. CARDIOVASCULAR: Regular rate and rhythm without murmurs, gallops, or rubs. RESPIRATORY: Breath sounds equal bilaterally. No accessory muscle use. GASTROINTESTINAL: Abdomen soft, non-tender, nondistended. MUSCULOSKELETAL: No cyanosis, or edema. Unable to move right leg much. Right upper ext immobilized. BACK: Nontender without obvious deformity. No CVA tenderness. Procedures OPERATION: 1. Total hip replacement arthroplasty, right hip using [employer] components, cup 46 millimeter Rosmery with 1 dome screw. 2. High wall +3 polyethylene liner. 3. 9 millimeter Taperloc stem, standard offset, for 32 millimeter ceramic head -6 neck length. A/P Problem List: (1) Closed right scapular fracture ICD Code: S42.101A - Fracture of unspecified part of scapula, right shoulder, initial encounter for closed fracture Status: Acute (2) Closed right hip fracture ICD Code: S72.001A - Fracture of unspecified part of neck of right femur, initial encounter for closed fracture Status: Acute (3) Urinary tract infection ICD Code: N39.0 - Urinary tract infection, site not specified Status: Acute (4) Hypothyroidism ICD Code: E03.9 - Hypothyroidism, unspecified (5) Hypertension ICD Code: I10 - Essential (primary) hypertension (6) Anxiety and depression ICD Code: F41.8 - Other specified anxiety disorders Assessment and Plan Ms. Alcaraz is a pleasant 77-year-old female with a history of hypertension, hypothyroidism who was admitted to the hospital after her orthopedic surgeon reviewed imaging studies that indicated a right femoral neck fracture as well as right scapular fracture as a result of a mechanical fall about a week ago on 04/22/2017. Patient reports no chest pain, dizziness or lightheadedness prior to her fall. Upon further discussion she does report increased urinary frequency and hesitation but no dysuria or hematuria. She also reports no fever or chills. - Right femoral neck fracture - Right scapular fracture - s/p Total hip replacement on 04/30/2017. - Continue acetaminophen, Percocet when necessary for pain. - Bowel regimens are ordered. - DVT prophylaxis per orthopedic surgeon - urinary tract infection likely due to E. Coli. - Continue Ceftriaxone 1g Q24hrs. We can likely discontinue Abx tomorrow. - Culture is growing Gram Negative Rods. Will continue to follow Culture and Sensitivity. - Transaminitis - LFTs elevated significantly. On admission, AST, ALT 16, 22 and this morning increased to 980, 317. - Sudden increase in LFTs overnight probably related medications such as Levaquin. - Hepatitis or shock liver are not likely etiology. - LFTs trending down. - Hypomagnesemia - Mild Hypokalemia - replaced with IV Mg sulfate and PO KCL. - Hypertension - Hypothyroidism - Continue levothyroxine 50 g daily. - Continue losartan 100 mg by mouth daily. - Blood pressure is well controlled. - Anxiety and depression - Continue Abilify 10 mg daily and venlafaxine 200 mg by mouth daily. - Diazepam discontinued since patient does not take it. - Insomnia - continue temazepam 15 mg by mouth daily at bedtime. Full code. SCDs. Problem Qualifiers (1) Closed right scapular fracture: Qualified Codes: S42.101A - Fracture of unspecified part of scapula, right shoulder, initial encounter for closed fracture (2) Closed right hip fracture: Qualified Codes: S72.001A - Fracture of unspecified part of neck of right femur , initial encounter for closed fracture (3) Urinary tract infection: Qualified Codes: N30.00 - Acute cystitis without hematuria (4) Hypertension: Qualified Codes: I10 - Essential (primary) hypertension Neeraj Shah DO May 01, 2017 16:47
[2017-05-01] MEDS ORDERED: CALCIUM GLUCONATE INJ 1 GM in SODIUM CHLORIDE 0.9% INJ 100 ML IV ONE (20:00)
[2017-05-01] MEDS: DOCUSATE SODIUM 100 MG CAP PO SCH (20:23)
[2017-05-02 00:30] VITALS: BP 153/62; PULSE 80; RESP 17; TEMP 96.7; O2SAT 95
[2017-05-02] MEDS: KETOROLAC TROMETHAMINE 30 MG/ML (IVP) VIAL IVP SCH ×2 (03:50→09:57)
[2017-05-02] MEDS: ACETAMINOPHEN/HYDROcodone 325 MG/7.5 MG TAB PO PRN (03:50)
[2017-05-02] MEDS: LEVOTHYROXINE SODIUM 50 MCG TAB PO SCH (06:02)
[2017-05-02] MEDS: POTASSIUM CHLORIDE 10 MEQ CONTROLLED RELEASE TAB PO SCH ×2 (06:02→14:00)
[2017-05-02 07:40] VITALS: BP 192/84; PULSE 76; RESP 16; TEMP 96.9; O2SAT 98
[2017-05-02] MEDS: ACETAMINOPHEN 1000 MG/100 ML VIAL IV SCH (07:56)
[2017-05-02] MEDS: VENLAFAXINE HCL XR 75 MG CAP PO SCH (07:57)
[2017-05-02] MEDS: LOSARTAN 50 MG TAB PO SCH (07:57)
[2017-05-02] MEDS: DOCUSATE SODIUM 100 MG CAP PO SCH (07:57)
[2017-05-02] MEDS: cefTRIAXone INJ 1,000 MG in SODIUM CHLORIDE 0.9% INJ 100 ML IV SCH (07:57)
[2017-05-02] MEDS: CHOLECALCIFEROL (VIT D3) LIQ 400 UNITS/ML 50 ML BOTTLE PO SCH (07:58)
[2017-05-02] MEDS: CELECOXIB 200 MG CAP PO SCH (07:58)
[2017-05-02] MEDS: DOCUSATE SODIUM 50 MG/SENNA 8.6 MG TAB PO SCH (07:58)
[2017-05-02] MEDS: SODIUM CHLORIDE 0.9% FLUSH 5 ML FLUSH IVF SCH (07:59)
[2017-05-02] MEDS: SODIUM CHLOR 0.9% 1000 ML INJ 1,000 ML IV SCH (08:00)
[2017-05-02 09:18] LABS: ALKALINE PHOSPHATASE 183 U/L (45-117); ALT (GPT) 133 U/L (10-53); ANION GAP 8 MEQ/L (5-15); AST (GOT) 90 U/L (15-37); BICARBONATE 21.4 MEQ/L (21.0-32.0); BLOOD UREA NITROGEN 10 MG/DL (7-18); CHLORIDE 112 MEQ/L (98-107); GLOMERULAR FILTRATION RATE 77 ML/MIN (>89); SODIUM (NA) 141 MEQ/L (136-145); TOTAL BILIRUBIN ADULT 0.4 MG/DL (0.2-1.0)
[2017-05-02] MEDS: ARIPiprazole 5 MG TAB PO SCH (09:56)
[2017-05-02 11:00] VITALS: O2SAT 98
--- NOTE | 2017-05-02 11:16 | HHI.PR ---
Subjective Remarks Follow up for fall related right femur, right scapular fracture, UTI. Patient complains of abdominal pain and diarrhea. No fever, chills. Objective Vitals Vital Signs Date Time Temp Pulse Resp B/P (MAP) Pulse Ox O2 Delivery O2 Flow Rate FiO2 05/02/17 08:37 16 05/02/17 07:40 96.9 76 16 192/84 (120) 98 05/02/17 00:30 96.7 80 17 153/62 (92) 95 05/01/17 21:30 96 05/01/17 20:35 96.8 81 17 137/62 (87) 98 05/01/17 17:38 16 05/01/17 16:00 97.0 80 18 116/54 (74) 94 05/01/17 15:31 16 05/01/17 12:00 99.1 72 18 121/51 (74) 97 I/O 05/01/17 05/01/17 05/01/17 05/02/17 05/02/17 05/02/17 07:00 15:00 23:00 07:00 15:00 23:00 Intake Total 2110 ml 600 ml 340 ml 240 ml Output Total 200 ml 400 ml 800 ml Balance 1910 ml 200 ml 340 ml -560 ml Intake Oral 240 ml 600 ml 240 ml 240 ml IV Total 1870 ml 100 ml Output Urine Total 200 ml 400 ml 800 ml Bladder Scan Volume Amount 400 ml # Voids 0 # Bowel Movements 0 2 2 2 Result Diagram: 05/01/17 0632 05/02/17 0725 Imaging Last Impressions Hip X-Ray 04/30/17 0000 Signed Impressions: Service Date/Time: Sunday, April 30, 2017 14:33 - CONCLUSION: Appropriate postoperative appearance of the right hip status post total arthroplasty. Jaron Craven MD Chest X-Ray 04/29/17 1252 Signed Impressions: Service Date/Time: Saturday, April 29, 2017 13:16 - CONCLUSION: No acute disease. Rodo Drummond MD Objective Remarks GENERAL: Alert, NAD. SKIN: Warm and dry. HEAD: Normocephalic. EYES: No scleral icterus. No injection or drainage. NECK: Supple, trachea midline. No JVD or lymphadenopathy. CARDIOVASCULAR: Regular rate and rhythm without murmurs, gallops, or rubs. RESPIRATORY: Breath sounds equal bilaterally. No accessory muscle use. GASTROINTESTINAL: Abdomen soft, non-tender, nondistended. MUSCULOSKELETAL: No cyanosis, or edema. Unable to move right leg much. Right upper ext immobilized. BACK: Nontender without obvious deformity. No CVA tenderness. Procedures OPERATION: 1. Total hip replacement arthroplasty, right hip using [employer] components, cup 46 millimeter Rosmery with 1 dome screw. 2. High wall +3 polyethylene liner. 3. 9 millimeter Taperloc stem, standard offset, for 32 millimeter ceramic head -6 neck length. A/P Problem List: (1) Closed right scapular fracture ICD Code: S42.101A - Fracture of unspecified part of scapula, right shoulder, initial encounter for closed fracture Status: Acute (2) Closed right hip fracture ICD Code: S72.001A - Fracture of unspecified part of neck of right femur, initial encounter for closed fracture Status: Acute (3) Urinary tract infection ICD Code: N39.0 - Urinary tract infection, site not specified Status: Acute (4) Hypothyroidism ICD Code: E03.9 - Hypothyroidism, unspecified (5) Hypertension ICD Code: I10 - Essential (primary) hypertension (6) Anxiety and depression ICD Code: F41.8 - Other specified anxiety disorders Assessment and Plan Ms. Alcaraz is a pleasant 77-year-old female with a history of hypertension, hypothyroidism who was admitted to the hospital after her orthopedic surgeon reviewed imaging studies that indicated a right femoral neck fracture as well as right scapular fracture as a result of a mechanical fall about a week ago on 04/22/2017. Patient reports no chest pain, dizziness or lightheadedness prior to her fall. Upon further discussion she does report increased urinary frequency and hesitation but no dysuria or hematuria. She also reports no fever or chills. - Right femoral neck fracture - Right scapular fracture - s/p Total hip replacement on 04/30/2017. - Continue acetaminophen, Percocet when necessary for pain. - Bowel regimens are ordered. - DVT prophylaxis per orthopedic surgeon - urinary tract infection likely due to E. Coli. - Continue Ceftriaxone 1g Q24hrs. - Culture is growing Gram Negative Rods. Will d/c abx - Diarrhea - will check C. Diff PCR. If negative, we can use Imodium. - Transaminitis - LFTs elevated significantly. On admission, AST, ALT 16, 22 and this morning increased to 980, 317. - Sudden increase in LFTs overnight probably related medications such as Levaquin. - Hepatitis or shock liver are not likely etiology. - LFTs trending down. Will advise patient to do blood work in one week after hospitalization. - Hypomagnesemia - Mild Hypokalemia - replaced with IV Mg sulfate and PO KCL. - Hypertension - Hypothyroidism - Continue levothyroxine 50 g daily. - Continue losartan 100 mg by mouth daily. - Blood pressure is well controlled. - Anxiety and depression - Continue Abilify 10 mg daily and venlafaxine 200 mg by mouth daily. - Diazepam discontinued since patient does not take it. - Insomnia - continue temazepam 15 mg by mouth daily at bedtime. Full code. SCDs. Problem Qualifiers (1) Closed right scapular fracture: Qualified Codes: S42.101A - Fracture of unspecified part of scapula, right shoulder, initial encounter for closed fracture (2) Closed right hip fracture: Qualified Codes: S72.001A - Fracture of unspecified part of neck of right femur , initial encounter for closed fracture (3) Urinary tract infection: Qualified Codes: N30.00 - Acute cystitis without hematuria (4) Hypertension: Qualified Codes: I10 - Essential (primary) hypertension Neeraj Shah DO May 02, 2017 11:16
[2017-05-02 11:44] VITALS: BP 167/78; PULSE 79; RESP 16; TEMP 96; O2SAT 98
--- NOTE | 2017-05-02 11:45 | PD.ORT.PN ---
Subjective Subjective Remarks Comfortable today without complaints and ready to go to rehabilitation. Objective Vitals Vital Signs Date Time Temp Pulse Resp B/P (MAP) Pulse Ox O2 Delivery O2 Flow Rate FiO2 05/02/17 11:00 16 05/02/17 11:00 98 05/02/17 08:37 16 05/02/17 07:40 96.9 76 16 192/84 (120) 98 05/02/17 00:30 96.7 80 17 153/62 (92) 95 05/01/17 21:30 96 05/01/17 20:35 96.8 81 17 137/62 (87) 98 05/01/17 16:00 97.0 80 18 116/54 (74) 94 05/01/17 15:31 16 05/01/17 12:00 99.1 72 18 121/51 (74) 97 I/O 05/01/17 05/01/17 05/01/17 05/02/17 05/02/17 05/02/17 07:00 15:00 23:00 07:00 15:00 23:00 Intake Total 2110 ml 600 ml 340 ml 240 ml Output Total 200 ml 400 ml 800 ml Balance 1910 ml 200 ml 340 ml -560 ml Intake Oral 240 ml 600 ml 240 ml 240 ml IV Total 1870 ml 100 ml Output Urine Total 200 ml 400 ml 800 ml Bladder Scan Volume Amount 400 ml # Voids 0 # Bowel Movements 0 2 2 2 Result Diagram: 05/01/17 0632 05/02/17 0725 Objective Remarks Patient is comfortable sitting up in chair today. She is neurovascularly intact her toes. Right arm in sling. Right hip incision intact. Assessment & Plan Ortho Post Op Day #: 2 Problem List: Assessment and Plan POD 2 MARIAH right closed fx right glenoid in sling U/A showing gm pos rods, on ceftriaxone, to await sensitivity To SNF today Axel Aguilar MD May 02, 2017 11:45
[2017-05-02] MEDS: ENOXAPARIN SODIUM 30 MG/0.3 ML SYRINGE SQ SCH (13:30)
[2017-05-02] MEDS ORDERED: ENOX30P SQ (13:57)
== END 2017-05-02 14:09 | DRG 470 ==
LOC: NEPC 12:09 → NEDA 13:46 → N06B 15:42
PROVIDERS: ADMIT Orthopaedic Surgery; ATTEND Orthopaedic Surgery
PROC: 0SR904A Replacement of Right Hip Joint with Ceramic on Polyethylene Synthetic Substitute, Uncemented, Open Approach (ICD-10-PCS; principal; 2017-04-30 11:41)
DX: S72.001A Fracture of unspecified part of neck of right femur, initial encounter for closed fracture (principal); K50.90 Crohn's disease, unspecified, without complications; N30.00 Acute cystitis without hematuria; W01.0XXA Fall on same level from slipping, tripping and stumbling without subsequent striking against object, initial encounter; F41.9 Anxiety disorder, unspecified; E87.6 Hypokalemia; M19.90 Unspecified osteoarthritis, unspecified site; E03.9 Hypothyroidism, unspecified; I10 Essential (primary) hypertension; G47.00 Insomnia, unspecified; M81.0 Age-related osteoporosis without current pathological fracture; S42.141A Displaced fracture of glenoid cavity of scapula, right shoulder, initial encounter for closed fracture; E83.42 Hypomagnesemia; E78.5 Hyperlipidemia, unspecified; F32.9 Major depressive disorder, single episode, unspecified; R19.7 Diarrhea, unspecified; B96.20 Unspecified Escherichia coli [E. coli] as the cause of diseases classified elsewhere; Y92.000 Kitchen of unspecified non-institutional (private) residence as the place of occurrence of the external cause; Z23 Encounter for immunization
CPT/HCPCS: 71010; 73502; 80053; 81001; 82652; 83540; 83735; 83970; 84466; 85025; 85027; 85610; 85730; 86850; 86900; 86901; 87077; 87086; 87186; 90471; 90472; 90686; 90732; 93005; 94150; C1776; G0008; G0009; J0131; J0610; J0690; J0696; J0735; J1100; J1580; J1650; J1885; J1956; J2270; J2405; J2710; J2795; J3010; J3370; J3475; J7030; J7050; J7120; Q2038

== ENCOUNTER 2017-05-08 16:53 | Inpatient (IN) | payer OTHER, MEDICARE ==
[~2017-05-08 16:53] MED LIST: ARIP1TAB5 PO; CALC250T PO; CHOL1CAP14 PO; CHOL5000 PO; ENOX30P SQ; HYDR-3580 PO; LEVO50TA4 PO; LOSA100T PO; TEMA15CA PO; TRAM50TA PO; VENL100T PO
[2017-05-08 16:57] VITALS: BP 150/69; PULSE 66; RESP 18; TEMP 98.7; O2SAT 98
[2017-05-08] MEDS ORDERED: SODIUM CHLOR 0.9% 1000 ML INJ 1,000 ML IV ONE (16:58)
--- NOTE | 2017-05-08 17:13 | RADRPT ---
EXAM DATE/TIME: 05/08/2017 17:05 [facility] COMPARISON: No previous studies available for comparison. INDICATIONS : Stroke alert, left facial droop and weakness. RADIATION DOSE: 29.34 CTDIvol (mGy) This report was called by Dr Alves to Dr Crandall at 1710 MEDICAL HISTORY : Cardiovascular disease. Hypertension. Chronic obstructive pulmonary disease. SURGICAL HISTORY : None. ENCOUNTER: Initial ACUITY: 1 day PAIN SCALE: 0/10 LOCATION: cranial TECHNIQUE: Multiple contiguous axial images were obtained of the head. Using automated exposure control and adj ustment of the mA and/or kV according to patient size, radiation dose was kept as low as reasonably a chievable to obtain optimal diagnostic quality images. DICOM format image data is available electro nically for review and comparison. FINDINGS: CEREBRUM: The ventricles are normal for age. No evidence of midline shift, mass lesion, hemorrhage or acute in farction. No extra-axial fluid collections are seen. POSTERIOR FOSSA: The cerebellum and brainstem are intact. The 4th ventricle is midline. The cerebellopontine angle i s unremarkable. EXTRACRANIAL: The visualized portion of the orbits is intact. SKULL: The calvaria is intact. No evidence of skull fracture. CONCLUSION: Normal examination. Tr Alves Jr., MD on May 08, 2017 at 17:08 Board Certified Radiologist. This report was verified electronically.
[2017-05-08 17:17] VITALS: O2SAT 99
[2017-05-08 17:19] LABS: I-STAT POTASSIUM 3.1 MMOL/L (3.5-4.9); I-STAT SODIUM 142 MMOL/L (138-146)
--- NOTE | 2017-05-08 17:25 | PD ---
HPI Chief Complaint: Stroke Alert Time Seen by Provider: 16:58 Travel History International Travel<30 days: No Contact w/Intl Traveler<30days: No Traveled to known affect area: No History of Present Illness HPI This is a 77-year-old female who had a hip fracture on the 11th of this month, who is at [facility]. Patient apparently had a witnessed episode of left sided facial droop. The patient is had previous TIAs in the past. Paramedics called a stroke alert based on the questionable left sided facial droop. The patient is awake and alert answering questions appropriately. She has regular strength in her upper and lower extremities and follows commands. She is unable to do heel to howard on her right lower extremity secondary to her hip fracture. She is currently not on any anticoagulation. PFSH Past Medical History Arthritis: Yes Anxiety: Yes Depression: Yes Cardiovascular Problems: Yes High Cholesterol: Yes COPD: Yes Genitourinary: Yes Immune Disorder: Yes (CROHNS DISEASE) Kidney Stones: Yes Musculoskeletal: Yes Neurologic: Yes Psychiatric: Yes Respiratory: Yes Migraines: Yes Ulcer: Yes Social History Alcohol Use: No Tobacco Use: No Substance Use: No Allergies-Medications (Allergen,Severity, Reaction): Coded Allergies: No Known Allergies (Unverified , 05/08/17) Reported Meds & Prescriptions Reported Meds & Active Scripts Active Calcium Citrate 250 Mg Calcium Tab 650 Mg PO DAILY MDD 1 90 Days D3 Maximum Strength (Cholecalciferol) 5,000 Unit Cap 5,000 Units PO DAILY MDD 1 30 Days Hydrocodone-Acetaminophen 7.5-325 mg Tab 1 Tab PO Q6H PRN MDD 4 30 Days Reported Diazepam 5 Mg Tab 5 Mg PO DAILY Citroma Liq (Magnesium Citrate) 300 Ml Liq 300 Ml PO DIRECTED Remeron (Mirtazapine) 30 Mg Tab 30 Mg PO HS Metoprolol Tartrate 25 Mg Tab 25 Mg PO DAILY Melatonin 5 Mg Tab 6 Mg PO HS Lovastatin 40 Mg Tab 100 Mg PO DAILY Lovenox Inj (Enoxaparin Sodium) 30 Mg/0.3 Ml Syr 30 Mg SQ DAILY 14 Days Effexor (Venlafaxine HCl) 100 Mg Tab 200 Mg PO DAILY Abilify (Aripiprazole) 10 Mg Tab 10 Mg PO DAILY Losartan (Losartan Potassium) 100 Mg Tab 100 Mg PO DAILY Levothyroxine (Levothyroxine Sodium) 50 Mcg Tab 50 Mcg PO DAILY Temazepam 15 Mg Cap 15 Mg PO HS PRN Tramadol (Tramadol HCl) 50 Mg Tab 50 Mg PO Q8H PRN Vitamin D3 (Cholecalciferol) 5,000 Unit Cap 5,000 Units PO WEEKLY Review of Systems Except as stated in HPI: all other systems reviewed are Neg General / Constitutional: No: Fever, Chills HENT: No: Headaches, Neck Pain Cardiovascular: No: Chest Pain or Discomfort, Palpitations Respiratory: No: Cough, Shortness of Breath Gastrointestinal: No: Nausea, Vomiting, Abdominal Pain Musculoskeletal: Positive: Limited ROM, Pain (residual pain from right hip surgery. No new pain.), No: Weakness, Edema Physical Exam Narrative GENERAL: Developed well-nourished female in no acute rest her distress. The patient is a alert and awake and answering questions. SKIN: Focused skin assessment warm/dry. HEAD: Atraumatic. Normocephalic. EYES: Pupils equal and round. No scleral icterus. No injection or drainage. ENT: No nasal bleeding or discharge. Mucous membranes pink and moist. NECK: Trachea midline. No JVD. CARDIOVASCULAR: Regular rate and rhythm. No murmur appreciated. RESPIRATORY: No accessory muscle use. Clear to auscultation. Breath sounds equal bilaterally. GASTROINTESTINAL: Abdomen soft, non-tender, nondistended. Hepatic and splenic margins not palpable. MUSCULOSKELETAL: No obvious deformities. No clubbing. No cyanosis. No edema. NEUROLOGICAL: Awake and alert. No obvious cranial nerve deficits. Motor grossly within normal limits. Normal speech. Questionable slight facial droop on the left corner of her mouth. Otherwise everything is appropriate. NIH stroke scale is 1. PSYCHIATRIC: Appropriate mood and affect; insight and judgment normal. Data Data Last Documented VS Vital Signs Date Time Temp Pulse Resp B/P (MAP) Pulse Ox O2 Delivery O2 Flow Rate FiO2 05/08/17 17:17 99 21 05/08/17 17:07 (96) Room Air 05/08/17 16:57 98.7 66 18 Orders Orders Activity Bed Rest (05/08/17 ) Electrocardiogram (05/08/17 ) I-Stat Creatinine (05/08/17 16:58) I-Stat Profile (05/08/17 16:58) Prothrombin Time / Inr (Pt) (05/08/17 16:58) Act Partial Throm Time (Ptt) (05/08/17 16:58) Complete Blood Count With Diff (05/08/17 16:58) Fibrinogen (05/08/17 16:58) Creatine Kinase (Cpk) (05/08/17 16:58) Troponin I (05/08/17 16:58) Ua Includes Microscopic (05/08/17 16:58) Drug Screen, Random Urine (05/08/17 16:58) Type And Screen (05/08/17 16:58) Ct Brain W/O Iv Contrast(Rout) (05/08/17 ) Beta Hcg (Quant/Titer) (05/08/17 16:58) Consult Neurology (05/08/17 ) Blood Glucose (05/08/17 16:58) Ecg Monitoring (05/08/17 16:58) Neuro Checks Q2HX12,Q4H (05/08/17 16:58) Nursing Bedside Swallow Assess .ONCE (05/08/17 16:58) Iv Access Insert/Monitor (05/08/17 16:58) NPO (05/08/17 16:58) Oximetry (05/08/17 16:58) Oxygen Administration (05/08/17 16:58) Sodium Chlor 0.9% 1000 Ml Inj (Ns 1000 M (05/08/17 16:58) Resp Oxygen Jose C Titrat 1-4 L (05/08/17 16:58) Cath For Specimen (05/08/17 16:58) (Hub Use Only)Inp Phy Cons/Ref (05/08/17 ) Admit Order (Ed Use Only) (05/08/17 18:28) Mri Brain W/O Contrast (05/08/17 18:28) Mra Brain W/O Contrast (Cow) (05/08/17 18:28) Ns + Kcl 40 Meq Inj (Ns + Kcl 40 Meq Inj (05/08/17 18:45) Labs Laboratory Tests Test 05/08/17 16:58 05/08/17 17:40 White Blood Count 6.2 TH/MM3 Red Blood Count 3.31 MIL/MM3 Hemoglobin 9.9 GM/DL Bedside Hemoglobin 9.5 G/DL Hematocrit 30.2 % Bedside Hematocrit 28.0 % Mean Corpuscular Volume 91.2 FL Mean Corpuscular Hemoglobin 29.8 PG Mean Corpuscular Hemoglobin Concent 32.6 % Red Cell Distribution Width 15.5 % Platelet Count 335 TH/MM3 Mean Platelet Volume 7.5 FL Neutrophils (%) (Auto) 72.5 % Lymphocytes (%) (Auto) 14.5 % Monocytes (%) (Auto) 9.1 % Eosinophils (%) (Auto) 3.2 % Basophils (%) (Auto) 0.7 % Neutrophils # (Auto) 4.5 TH/MM3 Lymphocytes # (Auto) 0.9 TH/MM3 Monocytes # (Auto) 0.6 TH/MM3 Eosinophils # (Auto) 0.2 TH/MM3 Basophils # (Auto) 0.0 TH/MM3 CBC Comment DIFF FINAL Differential Comment Bedside Sodium 142 MMOL/L Bedside Potassium 3.1 MMOL/L Bedside Chloride 103 MMOL/L Bedside Blood Urea Nitrogen 16 MG/DL Bedside Creatinine 1.1 MG/DL Bedside Glucose 79 MG/DL Total Creatine Kinase 103 U/L Troponin I LESS THAN 0.02 NG/ML Human Chorionic Gonadotropin, Quant 5 MIU/ML Urine Color YELLOW Urine Turbidity CLEAR Urine pH 6.0 Urine Specific [place] 1.017 Urine Protein TRACE mg/dL Urine Glucose (UA) NEG mg/dL Urine Ketones 10 mg/dL Urine Occult Blood NEG Urine Nitrite NEG Urine Bilirubin NEG Urine Urobilinogen LESS THAN 2.0 MG/DL Urine Leukocyte Esterase NEG Urine RBC 1 /hpf Urine WBC 1 /hpf Urine Hyaline Casts 1 /lpf MDM Medical Decision Making Medical Screen Exam Complete: Yes Emergency Medical Condition: Yes Differential Diagnosis CVA versus TIA versus metabolic arrangement. Narrative Course 77-year-old female presents a stroke alert. The patient was noted to have a waxing and waning left sided facial droop. NIH stroke scale was 1. The patient had a negative CT scan. Patient was discussed with Dr. Polk, neurologist who agrees at this time TPA should be withheld. We will obtain an MRI/MRA of the brain. She'll be admitted to the hospital. The case was discussed with [facility]. Helm, [facility], who agrees for the admission. Diagnosis Primary Impression: TIA versus CVA Additional Impressions: recent hip surgery Hypertension Admitting Information Admitting Physician Requests: Observation Myron Crandall MD May 08, 2017 17:25
[2017-05-08] MEDS ORDERED: MELA5TAB15 PO (17:33)
[2017-05-08] MEDS ORDERED: REME30TA PO (17:33)
[2017-05-08] MEDS ORDERED: METO25TA3 PO (17:33)
[2017-05-08] MEDS ORDERED: DIAZ5TAB PO (17:33)
[2017-05-08] MEDS ORDERED: CITRSOL4 PO (17:33)
[2017-05-08] MEDS ORDERED: LOVA40TA PO (17:33)
[2017-05-08 17:38] LABS: AUTOMATED NEUTROPHIL # 4.5 TH/MM3 (1.8-7.7); BASOPHIL % 0.7 % (0.0-2.0); BETA HCG QUANT 5 MIU/ML (0-5); CREATINE KINASE 103 U/L (26-192); EOSINOPHIL # 0.2 TH/MM3 (0-0.4); EOSINOPHIL % 3.2 % (0.0-4.0); HEMATOCRIT 30.2 % (35.0-46.0); HEMO FLAGS DIFF FINAL; LYMPH % 14.5 % (9.0-44.0); LYMPHOCYTE # 0.9 TH/MM3 (1.0-4.8); MEAN CELL VOLUME 91.2 FL (80.0-100.0); MEAN CORPUSCULAR HEMOGLOBIN 29.8 PG (27.0-34.0); MEAN CORPUSCULAR HGB CONC 32.6 % (32.0-36.0); MONO % 9.1 % (0.0-8.0); NEUT % 72.5 % (16.0-70.0); PLATELET COUNT 335 TH/MM3 (150-450); RED BLOOD COUNT 3.31 MIL/MM3 (4.00-5.30); RED CELL DISTRIBUTION WIDTH 15.5 % (11.6-17.2); WHITE BLOOD COUNT 6.2 TH/MM3 (4.0-11.0)
[2017-05-08 18:35] VITALS: BP 141/63; PULSE 66; RESP 17; O2SAT 97
[2017-05-08] MEDS ORDERED: NS + KCL 40 MEQ INJ 1,000 ML IV SCH (18:45)
[2017-05-08 18:59] LABS: BLOOD, URINE NEG (NEG); GLUCOSE,URINE NEG (NEG); HYALINE CAST, URINE 1 /lpf (RARE); KETONE, URINE 10 mg/dL (NEG); NITRITE,URINE NEG (NEG); URINE COLOR YELLOW (YELLW/STRAW)
[2017-05-08] MEDS ORDERED: MAGNESIUM HYDROXIDE SUSP 30 ML CUP PO PRN (19:00)
[2017-05-08] MEDS ORDERED: BISACODYL 10 MG SUPP RECTAL PRN (19:00)
[2017-05-08] MEDS ORDERED: SENNOSIDES 8.6 MG TAB PO PRN (19:00)
[2017-05-08] MEDS ORDERED: LACTULOSE SYRUP 20 GM/30 ML CUP PO PRN (19:00)
[2017-05-08] MEDS ORDERED: ACETAMINOPHEN 325 MG TAB PO PRN (19:00)
[2017-05-08] MEDS ORDERED: SODIUM CHLORIDE 0.9% FLUSH 10 ML FLUSH IV FLUSH PRN (19:00)
[2017-05-08] MEDS ORDERED: ONDANSETRON HCL 4 MG/2 ML VIAL IVP PRN (19:00)
[2017-05-08] MEDS ORDERED: NALOXONE HCL 0.4 MG/ML AMP IV PUSH PRN (19:00)
--- NOTE | 2017-05-08 19:04 | HHI.HP ---
HPI Service [facility] Primary Care Physician Kunal Traylor M.D. Admission Diagnosis TIA VS CVA, recent hip surgery, Diagnoses: (1) CVA (cerebral vascular accident) Diagnosis: Principal (2) Delirium Diagnosis: Principal (3) Renal insufficiency Diagnosis: Principal (4) Hypokalemia Diagnosis: Principal (5) HTN (hypertension) Diagnosis: Principal (6) H/O total hip arthroplasty Diagnosis: Principal (7) Anemia Diagnosis: Principal Travel History International Travel<30 Days: No Contact w/Intl Traveler <30 Da: No Traveled to Known Affected Are: No History of Present Illness This is a 77-year-old female with a PMH of Anxiety, Depression, HTN, Hyperlipidemia, Crohn's Disease, COPD and h/o TIA who was sent to the ER from [facility] secondary to left sided facial droop and delirium. Stroke Alert initiated by EMS, no apparent weakness. Upon arrival to ER pt w/ left sided facial droop, however no slurred speech or weakness. Recent admit for Right Hip Fx s/p Right MARIAH by Dr. Carr on 04/30/17, was d/c'd to Rehab and has "been doing well" per Daughter. Today, Daughter states pt was having auditory and visual hallucinations, talking to people that aren't there, and acting confused then noted to have facial droop. Symptoms now improved. BP 150/69, HR 66, O2 sat 98% on RA, Afebrile. Hemoglobin 9.9, previously 11.2 on 05/01/17. K+ 3.1. Creatinine 1.1. Trop negative. INR 1.0. U/a negative. Urine Drug Screen positive for Opiates and Benzo which she is receiving at Rehab. CT Head w/ no acute findings. MRI/MRA Brain pending. Per review of medical records, pt on Lovenox 30mg sq for prophylaxis at Rehab. Review of Systems Except as stated in HPI: all other systems reviewed are Neg ROS: 14 point review of systems otherwise negative. Past Family Social History Past Medical History PMH: Anxiety, Depression, HTN, Hyperlipidemia, Crohn's Disease, COPD and h/o TIA Past Surgical History PAST SURGICAL HISTORY: Right MARIAH Allergies: Coded Allergies: No Known Allergies (Unverified , 05/08/17) Family History PAST FAMILY HISTORY: Reviewed. No h/o DM or CAD Social History PAST SOCIAL HISTORY: Negative for a call, tobacco or drugs. Physical Exam Vital Signs Vital Signs Date Time Temp Pulse Resp B/P (MAP) Pulse Ox O2 Delivery O2 Flow Rate FiO2 05/08/17 18:35 66 17 141/63 (89) 97 Room Air 05/08/17 17:17 99 21 05/08/17 17:07 (96) Room Air 05/08/17 17:07 98 Room Air 05/08/17 16:57 98.7 66 18 150/69 (96) 98 Room Air 05/08/17 16:57 66 68 98 Room Air Physical Exam PE: GENERAL: Elderly white female in no acute distress. HEENT: PERRLA, EOMI. No scleral icterus or conjunctival pallor. No lid lag or facial droop. CARDIOVASCULAR: Regular rate and rhythm. No obvious murmurs to auscultation. No chest tenderness to palpation. RESPIRATORY: No obvious rhonchi or wheezing. Clear to auscultation. Breath sounds equal bilaterally. GASTROINTESTINAL: Abdomen soft, non-tender, nondistended. BS normal. MUSCULOSKELETAL: Extremities without clubbing, cyanosis, or edema. No obvious deformities. NEUROLOGICAL: Awake, alert and oriented to person, place, answering questions. No focal neurologic deficits. Moving both upper and lower extremities spontaneously. Laboratory Laboratory Tests Test 05/08/17 16:58 05/08/17 17:40 White Blood Count 6.2 Red Blood Count 3.31 Hemoglobin 9.9 Bedside Hemoglobin 9.5 Hematocrit 30.2 Bedside Hematocrit 28.0 Mean Corpuscular Volume 91.2 Mean Corpuscular Hemoglobin 29.8 Mean Corpuscular Hemoglobin Concent 32.6 Red Cell Distribution Width 15.5 Platelet Count 335 Mean Platelet Volume 7.5 Neutrophils (%) (Auto) 72.5 Lymphocytes (%) (Auto) 14.5 Monocytes (%) (Auto) 9.1 Eosinophils (%) (Auto) 3.2 Basophils (%) (Auto) 0.7 Neutrophils # (Auto) 4.5 Lymphocytes # (Auto) 0.9 Monocytes # (Auto) 0.6 Eosinophils # (Auto) 0.2 Basophils # (Auto) 0.0 CBC Comment DIFF FINAL Differential Comment Bedside Sodium 142 Bedside Potassium 3.1 Bedside Chloride 103 Bedside Blood Urea Nitrogen 16 Bedside Creatinine 1.1 Bedside Glucose 79 Total Creatine Kinase 103 Troponin I LESS THAN 0.02 Human Chorionic Gonadotropin, Quant 5 Urine Color YELLOW Urine Turbidity CLEAR Urine pH 6.0 Urine Specific [place] 1.017 Urine Protein TRACE Urine Glucose (UA) NEG Urine Ketones 10 Urine Occult Blood NEG Urine Nitrite NEG Urine Bilirubin NEG Urine Urobilinogen LESS THAN 2.0 Urine Leukocyte Esterase NEG Urine RBC 1 Urine WBC 1 Urine Hyaline Casts 1 Result Diagram: 05/08/17 1658 Caprini VTE Risk Assessment Caprini VTE Risk Assessment: Mod/High Risk (score >= 2) Caprini Risk Assessment Model Point Value = 1 Point Value = 2 Point Value = 3 Point Value = 5 Age 41-60 Minor surgery BMI > 25 kg/m2 Swollen legs Varicose veins or History of unexplained or recurrent spontaneous Oral contraceptives or hormone replacement Sepsis (< 1 month) Serious lung disease, including pneumonia (< 1 month) Abnormal pulmonary function Acute myocardial infarction Congestive heart failure (< 1 month) History of inflammatory bowel disease Medical patient at bed rest Age 61-74 Arthroscopic surgery Major open surgery (> 45 min) Laparoscopic surgery (> 45 min) Malignancy Confined to bed (> 72 hours) Immobilizing plaster cast Central venous access Age >= 75 History of VTE Family history of VTE Factor V Leiden Prothrombin [id number] Lupus anticoagulant Anticardiolipin antibodies Elevated serum homocysteine Heparin-induced thrombocytopenia Other congenital or acquired thrombophilia Stroke (< 1 month) Elective arthroplasty Hip, pelvis, or leg fracture Acute spinal cord injury (< 1 month) Prophylaxis Regimen Total Risk Factor Score Risk Level Prophylaxis Regimen 0-1 Low Early ambulation 2 Moderate Order ONE of the following: *Sequential Compression Device (SCD) *Heparin 5000 units SQ BID 3-4 Higher Order ONE of the following medications: *Heparin 5000 units SQ TID *Enoxaparin/Lovenox 40 mg SQ daily (WT < 150 kg, CrCl > 30 mL/min) *Enoxaparin/Lovenox 30 mg SQ daily (WT < 150 kg, CrCl > 10-29 mL/min) *Enoxaparin/Lovenox 30 mg SQ BID (WT < 150 kg, CrCl > 30 mL/min) AND/OR *Sequential Compression Device (SCD) 5 or more Highest Order ONE of the following medications: *Heparin 5000 units SQ TID (Preferred with Epidurals) *Enoxaparin/Lovenox 40 mg SQ daily (WT < 150 kg, CrCl > 30 mL/min) *Enoxaparin/Lovenox 30 mg SQ daily (WT < 150 kg, CrCl > 10-29 mL/min) *Enoxaparin/Lovenox 30 mg SQ BID (WT < 150 kg, CrCl > 30 mL/min) AND *Sequential Compression Device (SCD) Assessment and Plan Problem List: (1) CVA (cerebral vascular accident) ICD Code: I63.9 - Cerebral infarction, unspecified (2) Delirium ICD Code: R41.0 - Disorientation, unspecified (3) Renal insufficiency ICD Code: N28.9 - Disorder of kidney and ureter, unspecified (4) Hypokalemia ICD Code: E87.6 - Hypokalemia (5) HTN (hypertension) ICD Code: I10 - Essential (primary) hypertension (6) H/O total hip arthroplasty ICD Code: Z96.649 - Presence of unspecified artificial hip joint (7) Anemia ICD Code: D64.9 - Anemia, unspecified Assessment and Plan A/P: 1. CVA: acute onset of left-sided facial droop, CT Head w/ no acute findings, images reviewed by me. MRI/MRA ordered in ER, currently pending. At this time symptoms resolved, no residual facial droop. No weakness. Consult Neurology for further recommendations. On Lovenox 30mg sq qd for prophylaxis for recent Hip Sx, will continue. Resume Statin. Hold antihypertensives for now. PT/ST for eval/tx. 2. Delirium: acute onset of visual/auditory hallucinations per Daughter, possibly related to recent Hip Sx/hospitalization or underlying CVA. U/a negative. Neuro checks q4h. On Abilify per review of home medications. 3. Renal Insufficiency: KALPESH. Creatinine 1.1, previously 0.74 on 05/02/17. U/ a negative. IVF, repeat labs in am. 4. Hypokalemia: K+ 3.1, will replace and recheck in am. 5. HTN: BP 150's while in ER, will allow for permissive HTN at this time. Hold home medications, monitor BP. 6. H/o Right MARIAH: recent admit for right hip fracture, s/p Right MARIAH 04/30/[address] Carr, currently in Rehab. Will continue w/ PT 7. Anemia: Hgb 9.9, previously 11.2 on 05/01/17, no active bleeding noted. Monitor Hgb/Hct. Transfuse as needed. 8. DVT Prophylaxis: Resume Lovenox 9. Social work for d/c planning as needed. 10. Case discussed w/ ER physician at length. Physician Certification 2 Midnight Certification Type: Admission for Inpatient Services Order for Inpatient Services The services are ordered in accordance with Medicare regulations or non- Medicare payer requirements, as applicable. In the case of services not specified as inpatient-only, they are appropriately provided as inpatient services in accordance with the 2-midnight benchmark. Estimated LOS (days): 2 days is the estimated time the patient will need to remain in the hospital, assuming treatment plan goals are met and no additional complications. Post-Hospital Plan: Not yet determined Мария Velasquez MD May 08, 2017 19:04
[2017-05-08 19:07] LABS: APTT (PATIENT) 28.2 SEC (24.3-30.1); PROTHROMBIN TIME - PATIENT 11.1 SEC (9.8-11.6)
[2017-05-08 19:09] VITALS: BP 136/62; PULSE 69; RESP 16; O2SAT 98
[2017-05-08] MEDS ORDERED: HEPARIN SODIUM - SQ 10,000 UNITS/ML VIAL SQ SCH (20:00)
[2017-05-08 21:00] VITALS: BP 150/69; PULSE 71; RESP 17; TEMP 98.3; O2SAT 97
[2017-05-08] MEDS: SODIUM CHLORIDE 0.9% FLUSH 10 ML FLUSH IV FLUSH SCH (21:00)
[2017-05-08] MEDS: DOCUSATE SODIUM 50 MG/SENNA 8.6 MG TAB PO SCH (21:00)
--- NOTE | 2017-05-08 21:10 | RADRPT ---
EXAM DATE/TIME: 05/08/2017 19:53 [facility] COMPARISON: No previous studies available for comparison. INDICATIONS : Stroke. MEDICAL HISTORY : Hypertension. Hypothyroidism. SURGICAL HISTORY : Right hip repair. ENCOUNTER: Initial ACUITY: 1 day PAIN SCORE: 0/10 LOCATION: Head. Please note a normal MRA of the brain does not entirely exclude the possibility of a small aneurysm, nor the possibility of distal intracranial vessel disease. TECHNIQUE: 3D time of flight MRA was performed. Source images, multiplanar STS MIP, and 3D volume MIP reconstru ctions were reviewed. FINDINGS: There is excellent visualization of the major intracranial arteries out to the second-order branch ve ssels. There is no evidence for aneurysm, vessel truncation or stenosis, and no evidence for vascula r malformation. CONCLUSION: Normal examination. Bakari Lubin MD on May 08, 2017 at 21:05 Board Certified Radiologist. This report was verified electronically.
--- NOTE | 2017-05-08 21:11 | RADRPT ---
EXAM DATE/TIME: 05/08/2017 19:53 [facility] COMPARISON: No previous studies available for comparison. INDICATIONS : CVA. MEDICAL HISTORY : Hypertension. Hypothyroidism. SURGICAL HISTORY : Right hip repair. ENCOUNTER: Initial ACUITY: 1 day PAIN SCORE: 0/10 LOCATION: Head. TECHNIQUE: Multiplanar, multisequence MRI of the brain was performed without contrast. FINDINGS: CEREBRUM: The ventricles are normal for age. No evidence of midline shift, mass lesion, hemorrhage or acute in farction. No extraaxial fluid collections are seen. The pituitary gland and suprasellar cistern are normal in configuration. WHITE MATTER: No significant signal abnormalities are seen in the white matter. POSTERIOR FOSSA: The cerebellum and brainstem are intact. The 4th ventricle is midline. The cerebellopontine angle is unremarkable. The cerebellar tonsils are normal in position. DIFFUSION IMAGING: No focal areas of restricted diffusion are seen. No evidence of acute infarction. EXTRACRANIAL: The visualized portions of the orbits and paranasal sinuses are unremarkable. CONCLUSION: Normal examination. Bakari Lubin MD on May 08, 2017 at 21:08 Board Certified Radiologist. This report was verified electronically.
[2017-05-08] MEDS: POTASSIUM CHLOR 20 MEQ PREMIX 100 ML IV SCH ×2 (21:45→23:56)
--- NOTE | 2017-05-08 23:10 | EKG ---
Date Performed: 05/08/2017 Time Performed: 17:20:55 PTAGE: 77 years EKG: Sinus rhythm PROBABLE INFERIOR MYOCARDIAL INFARCTION ABNORMAL ECG PREVIOUS TRACING : 04/29/2017 16.48 Compared to prior tracing no significant change DOCTOR: Ankit Keane Interpretating Date/Time 05/08/2017 23:09:52
[2017-05-09] VITALS (8 sets, daily range): BP systolic 125–164; BP diastolic 66–73; PULSE 65–87; RESP 18; TEMP 97.7–98.4; O2SAT 96–98
[2017-05-09] MEDS ORDERED: PRAVASTATIN SOD 40 MG TAB PO SCH (09:00)
[2017-05-09] MEDS: SODIUM CHLORIDE 0.9% FLUSH 10 ML FLUSH IV FLUSH SCH ×2 (09:00→20:42)
[2017-05-09] MEDS: DOCUSATE SODIUM 50 MG/SENNA 8.6 MG TAB PO SCH ×2 (09:00→20:42)
[2017-05-09] MEDS: ENOXAPARIN SODIUM 30 MG/0.3 ML SYRINGE SQ SCH (09:12)
[2017-05-09] MEDS: PRAVASTATIN SOD 80 MG TAB PO SCH (09:13)
[2017-05-09 11:39] LABS: AUTOMATED NEUTROPHIL # 4.6 TH/MM3 (1.8-7.7); BASOPHIL # 0.1 TH/MM3 (0-0.2); EOSINOPHIL # 0.1 TH/MM3 (0-0.4); EOSINOPHIL % 2.1 % (0.0-4.0); HEMATOCRIT 28.6 % (35.0-46.0); HEMO FLAGS DIFF FINAL; LYMPH % 12.8 % (9.0-44.0); LYMPHOCYTE # 0.8 TH/MM3 (1.0-4.8); MEAN CELL VOLUME 90.1 FL (80.0-100.0); MEAN CORPUSCULAR HEMOGLOBIN 32.3 PG (27.0-34.0); MEAN CORPUSCULAR HGB CONC 35.9 % (32.0-36.0); MONO % 8.5 % (0.0-8.0); NEUT % 75.6 % (16.0-70.0); PLATELET COUNT 425 TH/MM3 (150-450); RED BLOOD COUNT 3.17 MIL/MM3 (4.00-5.30); RED CELL DISTRIBUTION WIDTH 15.6 % (11.6-17.2); WHITE BLOOD COUNT 6.1 TH/MM3 (4.0-11.0)
[2017-05-09 12:00] LABS: BICARBONATE 26.7 MEQ/L (21.0-32.0)
--- NOTE | 2017-05-09 12:09 | RADRPT ---
EXAM DATE/TIME: 05/09/2017 10:01 [facility] COMPARISON: No previous studies available for comparison. INDICATIONS : Cerebrovascular accident. MEDICAL HISTORY : Hypercholesterolemia. Hypertension. Chronic obstructive pulmonary disease. Migraine. Crohn's disease. arthritis. ulcer. kidney stones. SURGICAL HISTORY : Orthopedic surgery, right femur. ENCOUNTER: Initial ACUITY: 1 day PAIN SCORE: 0/10 LOCATION: Bilateral neck PEAK SYSTOLIC VELOCITIES (cm/sec): ICA/CCA RATIO: Right: 1.4 Left: 1.4 ICA: Right: 139 Left: 124 CCA: Right: 100 Left: 89 ECA: Right: 74 Left: 104 VERTEBRAL: Right: 70 antegrade Left: 52 antegrade Elevated flow velocities and ICA/CCA ratios have been found to correlate with increased degrees of vessel stenosis, calculated as percentage of diameter relative to a normal segment of distal ICA/CCA FINDINGS: RIGHT CAROTID: No significant stenosis is visualized. Mild plaque is present. The waveforms are within normal limits . LEFT CAROTID: No significant stenosis is visualized. Mild plaque is present. The waveforms are within normal limits . VERTEBRAL ARTERIES: Antegrade flow is seen in both vertebral arteries. MISCELLANEOUS: None. CONCLUSION: Mild plaque with no evidence of a hemodynamically significant lesion. Matty Hernandez MD on May 09, 2017 at 12:06 Board Certified Radiologist. This report was verified electronically.
[2017-05-09 12:10] LABS: POTASSIUM 2.7 MEQ/L (3.5-5.1)
[2017-05-09 12:52] LABS: HDL CHOLESTEROL 44.4 MG/DL (40.0-60.0); LDL CHOLESTEROL 73 MG/DL (0-99)
[2017-05-09] MEDS ORDERED: POTASSIUM CHLORIDE 10 MEQ CONTROLLED RELEASE TAB PO ONE (13:00)
--- NOTE | 2017-05-09 13:37 | MB ---
cc: JHON DELAROSA M.D. DATE OF CONSULTATION 05/09/2017 REASON FOR CONSULTATION Possible stroke HISTORY OF PRESENT ILLNESS This 77-year-old woman lives at [facility] recuperating from right hip fracture having therapy was in her usual state of health yesterday when she woke up from a nap with questionable left facial droop, very confused, delirious. She has a history of anxiety, depression, hypertension, hyperlipidemia, Crohn's disease, COPD. Stroke alert was initiated. My associate, Dr. Polk, was called and given her low NIH stroke scale and waxing and waning symptoms, TPA was decided against. The patient is back to baseline, no longer is having any type of delirium, not having any dysarthria or numbness, tingling or weakness. PAST MEDICAL HISTORY As stated. PAST SURGICAL HISTORY Right hip ALLERGIES None reported. SOCIAL HISTORY No tobacco, alcohol or drugs. MEDICATIONS Please refer to her MAR. PHYSICAL EXAM On exam, vitals temperature is 98, pulse 74, respiratory rate 18, blood pressure 150/71. NECK: Her neck is supple. There are no bruits. HEART: Regular. NEUROLOGIC: She is awake, alert. She is oriented to person, place and time. Speech is normal. There may be a little left facial asymmetry, however, she does not have her dentures in. Pupils reactive. Tongue is midline. Facial sensation is normal bilaterally. Motor, there is no drift in the upper extremities. Limited range of motion of the right hip from the surgery, but both toes are downgoing. DTRs are 1+. Sensory is normal. Cerebellar testing is normal. [id number] . Her potassium is low at 2.75, triglycerides 174, cholesterol 152, LDL 73, HDL 44.4 her B12 is very low at 195, TSH 2.170. CBC hemoglobin 10.3, platelets 425,000. Toxicology is positive for benzodiazepines and opiates. Urine is unremarkable. IMAGING STUDIES Brain MRI was negative. MRA [place] was negative. Carotid ultrasound mild plaquing, but no significant stenosis. Echo pending. IMPRESSION Possible TIA like symptoms, questionable delirium. She has hypokalemia noted as well. She does have low B12. RECOMMENDATIONS If she can tolerate with the her Crohn's, at least, a baby aspirin daily or every other day. Replace her B12 1000 mcg IM daily for a week and then weekly for a month and then monthly thereafter. I think she does not absorb it orally. I see she is on quite a few medications at the rehab facility such as Diazepam, Remeron, Effexor, Abilify and Tramadol as well as Temazepam as needed all of which can contribute to some confusion. I will go ahead and order some replacement of B12, get her out of bed with therapy and if her workup is negative, discharge planning is outlined. MD MANINDER Cowan/ISRAEL /1:12 PM /1:20 PM
[2017-05-09] MEDS: NS + KCL 20 MEQ INJ 1,000 ML IV SCH ×2 (13:53→23:00)
[2017-05-09 14:56] LABS: HEMOGLOBIN A1a 0.7 %; HEMOGLOBIN A1b 1.9 %; HEMOGLOBIN Ao 85.4 %; HEMOGLOBIN LA1C 2.4 %; HEMOGLOBIN P3 5.5 %
[2017-05-09] MEDS: CYANOCOBALAMIN 1000 MCG/ML VIAL IM SCH (16:06)
--- NOTE | 2017-05-09 16:28 | HHI.PR ---
Subjective Remarks Follow up CVA/TIA. Patient states that she is feeling better. No extremity weakness/tingling/numbness. Denies chest pain, dyspnea. Objective Vitals Vital Signs Date Time Temp Pulse Resp B/P (MAP) Pulse Ox O2 Delivery O2 Flow Rate FiO2 05/09/17 13:10 97.8 79 18 164/73 (103) 98 05/09/17 09:29 96 05/09/17 08:21 98.0 74 18 158/71 (100) 96 05/09/17 04:15 97.7 65 18 145/69 (94) 97 05/09/17 00:30 98.1 69 18 148/66 (93) 98 05/08/17 21:00 98.3 71 17 150/69 (96) 97 05/08/17 20:43 05/08/17 19:09 69 16 136/62 (86) 98 Room Air 05/08/17 18:35 66 17 141/63 (89) 97 Room Air 05/08/17 17:17 99 21 05/08/17 17:07 (96) Room Air 05/08/17 17:07 98 Room Air 05/08/17 16:57 98.7 66 18 150/69 (96) 98 Room Air 05/08/17 16:57 66 68 98 Room Air I/O 05/08/17 05/08/17 05/08/17 05/09/17 05/09/17 05/09/17 07:00 15:00 23:00 07:00 15:00 23:00 Intake Total 0 ml 650 ml 240 ml Balance 0 ml 650 ml 240 ml Intake Oral 0 ml 650 ml 240 ml # Voids 0 1 2 # Bowel Movements 0 2 2 Result Diagram: 05/09/17 1042 05/09/17 1042 Imaging Last Impressions Carotid Artery Ultrasound 05/09/17 0000 Signed Impressions: Service Date/Time: Tuesday, May 09, 2017 10:01 - CONCLUSION: Mild plaque with no evidence of a hemodynamically significant lesion. Matty Hernandez MD Head Magnetic Resonance Angiography 05/08/171827 Signed Impressions: Service Date/Time: April 19:53 - CONCLUSION: Normal examination. Bakari Lubin MD Brain MRI [id number]/08/171827 Signed Impressions: Service Date/Time: April 19:53 - CONCLUSION: Normal examination. Bakari Lubin MD Head CT 05/08/17 0000 Signed Impressions: Service Date/Time: April 17:05 - CONCLUSION: Normal examination. Tr Alves Jr., MD Objective Remarks General: Elderly female in no acute distress. Heart: Regular rate and rhythm. No murmur. Lungs: Clear to auscultation bilaterally. No wheezes, rales, or rhonchi. Breathing is nonlabored. Abdomen: Soft, nontender, nondistended. Extremities: No lower extremity edema. Psych: Alert and oriented. Neuro: No facial droop noted. Strength is 4/5 and equal in all 4 extremities. Procedures None Urinary Catheter: No Vascular Central Line Catheter: No A/P Problem List: (1) CVA (cerebral vascular accident) ICD Code: I63.9 - Cerebral infarction, unspecified (2) Delirium ICD Code: R41.0 - Disorientation, unspecified (3) Renal insufficiency ICD Code: N28.9 - Disorder of kidney and ureter, unspecified (4) Hypokalemia ICD Code: E87.6 - Hypokalemia (5) HTN (hypertension) ICD Code: I10 - Essential (primary) hypertension (6) H/O total hip arthroplasty ICD Code: Z96.649 - Presence of unspecified artificial hip joint (7) Anemia ICD Code: D64.9 - Anemia, unspecified Assessment and Plan 1. CVA versus TIA: Symptoms improved. Patient reportedly had acute onset of left -sided facial droop. CT and MRI are negative. Appreciate neurology recommendations. Continue PT/OT/ST. 2. Delirium: Possibly medication related versus secondary to underlying TIA. Urinalysis is negative. Continue neuro checks. 3. Renal insufficiency secondary to acute kidney injury: Resolved. 4. Hypokalemia: Supplement potassium. Patient has refused IV potassium. Monitor labs. 5. Hypertension: Allow permissive hypertension at this time. 6. Status post right total hip arthroplasty: Surgery done 04/30/17. Patient is currently at inpatient rehabilitation. Continue physical therapy. 7. Anemia: No apparent active bleeding. Monitor H&H. 8. DVT prophylaxis: Lovenox. Edwardo Multani MD May 09, 2017 16:28
--- NOTE | 2017-05-09 18:08 | ECHRPT ---
Indication: CVA/TIA CONCLUSIONS Normal left ventricular size. Wall thickness is normal. The left ventricular systolic function is normal with an estimated ejection fraction 70%. Atrial septal aneurysm is present (benign finding). Trace mitral valve regurgitation. BP: 158 / 71 HR: 74 Rhythm: Sinus MEASUREMENTS (Male / Female) Normal Values Technical Quality:Fair 2D ECHO LV Diastolic Diameter PLAX 4.0 cm 4.2 - 5.9 / 3.9 - 5.3 cm LV Systolic Diameter PLAX 3.0 cm IVS Diastolic Thickness 0.7 cm 0.6 - 1.0 / 0.6 - 0.9 cm LVPW Diastolic Thickness 0.4 cm 0.6 - 1.0 / 0.6 - 0.9 cm LV Relative Wall Thickness 0.3 RV Internal Dim ED PLAX 2.0 cm LA Systolic Diameter LX 3.4 cm 3.0 - 4.0 / 2.7 - 3.8 cm DOPPLER Mitral E Point Velocity 101.0 cm/s Mitral A Point Velocity 101.0 cm/s Mitral E to A Ratio 1.0 TR Peak Velocity 285.0 cm/s TR Peak Gradient 32.5 mmHg Right Atrial Pressure 5.0 mmHg Pulmonary Artery Systolic Pressu 37.5 mmHg Right Ventricular Systolic Press 37.5 mmHg FINDINGS LEFT VENTRICLE Normal left ventricular size. Wall thickness is normal. The left ventricular systolic function is normal with an estimated ejection fraction 70%. RIGHT VENTRICLE Normal right ventricular size and systolic function. LEFT ATRIUM The left atrial size is normal. RIGHT ATRIUM The right atrial size is normal. ATRIAL SEPTUM Atrial septal aneurysm is present (benign finding). AORTA The aortic root and proximal ascending aorta are normal in size on limited imaging. MITRAL VALVE Trace mitral valve regurgitation. AORTIC VALVE Trileaflet aortic valve. No aortic valve stenosis or regurgitation. TRICUSPID VALVE Structurally normal tricuspid valve. No tricuspid valve stenosis or regurgitation. PULMONARY VALVE No pulmonary valve regurgitation or stenosis. VESSELS The inferior vena cava is normal in size. PERICARDIUM No pericardial effusion. Bhargav Steve MD (Electronically Signed) Final Date:09 May 2017 18:07
[2017-05-10 00:15] VITALS: BP 139/76; PULSE 74; RESP 17; TEMP 98.8; O2SAT 98
[2017-05-10 04:30] VITALS: BP 128/75; PULSE 80; RESP 20; TEMP 97.3; O2SAT 98
[2017-05-10 08:00] VITALS: BP 190/80; PULSE 88; RESP 18; TEMP 96.9; O2SAT 94
[2017-05-10 08:02] VITALS: PULSE 80
[2017-05-10] MEDS: NS + KCL 20 MEQ INJ 1,000 ML IV SCH (08:55)
[2017-05-10] MEDS: SODIUM CHLORIDE 0.9% FLUSH 10 ML FLUSH IV FLUSH SCH (08:55)
[2017-05-10 09:00] VITALS: BP 152/70
[2017-05-10] MEDS: DOCUSATE SODIUM 50 MG/SENNA 8.6 MG TAB PO SCH (09:00)
[2017-05-10] MEDS ORDERED: WALKER WHEELS/F1 MIS (09:02)
[2017-05-10] MEDS: PRAVASTATIN SOD 80 MG TAB PO SCH (09:06)
[2017-05-10] MEDS: CYANOCOBALAMIN 1000 MCG/ML VIAL IM SCH (09:08)
[2017-05-10] MEDS: ENOXAPARIN SODIUM 30 MG/0.3 ML SYRINGE SQ SCH (09:08)
[2017-05-10] MEDS ORDERED: PNEUMOCOCCAL POLYVALENT INJ 25 MCG/0.5 ML SYR IM ONE (10:00)
[2017-05-10] MEDS ORDERED: INFLUENZA VIRUS VACCINE (QUADRIVALENT) 0.5 ML SYR IM ONE (10:00)
[2017-05-10 10:56] LABS: AUTOMATED NEUTROPHIL # 5.6 TH/MM3 (1.8-7.7); BASOPHIL % 0.5 % (0.0-2.0); EOSINOPHIL # 0.1 TH/MM3 (0-0.4); EOSINOPHIL % 1.1 % (0.0-4.0); HEMATOCRIT 30.2 % (35.0-46.0); HEMO FLAGS DIFF FINAL; LYMPH % 11.9 % (9.0-44.0); LYMPHOCYTE # 0.8 TH/MM3 (1.0-4.8); MEAN CELL VOLUME 90.4 FL (80.0-100.0); MEAN CORPUSCULAR HEMOGLOBIN 30.6 PG (27.0-34.0); MEAN CORPUSCULAR HGB CONC 33.8 % (32.0-36.0); MONO % 8.1 % (0.0-8.0); NEUT % 78.4 % (16.0-70.0); PLATELET COUNT 430 TH/MM3 (150-450); RED BLOOD COUNT 3.34 MIL/MM3 (4.00-5.30); RED CELL DISTRIBUTION WIDTH 15.3 % (11.6-17.2); WHITE BLOOD COUNT 7.1 TH/MM3 (4.0-11.0)
[2017-05-10] MEDS ORDERED: PRAV80TA PO (11:04)
[2017-05-10] MEDS ORDERED: CYAN1000P IM ×3 (11:04)
--- NOTE | 2017-05-10 11:04 | HHI.DCPOC ---
Discharge Care Plan Diagnosis: (1) Hypokalemia (2) Hypertension (3) Anxiety and depression (4) Hypothyroidism (5) Anemia (6) Delirium (7) Renal insufficiency (8) HTN (hypertension) (9) CVA (cerebral vascular accident) (10) Physical deconditioning Goals to Promote Your Health * To prevent worsening of your condition and complications * To maintain your health at the optimal level Directions to Meet Your Goals Take your medications as prescribed Follow your dietary instruction Follow activity as directed Keep your appointments as scheduled Take your immunizations and boosters as scheduled If your symptoms worsen call your PCP, if no PCP go to Urgent Care Center or Emergency Room Smoking is Dangerous to Your Health. Avoid second hand smoke Call the 24-hour hour crisis hotline for domestic abuse at Edwardo Multani MD May 10, 2017 11:04
--- NOTE | 2017-05-10 11:10 | HHI.PR ---
Subjective Remarks Follow up CVA/TIA, hypokalemia. Patient states that she feels much better today. Feels ready to return to rehab. Had nausea/vomiting overnight, but no nausea now. Denies pain at this time. No headache, vision changes, difficulty speaking. No numbness/tingling/weakness of her extremities. Objective Vitals Vital Signs Date Time Temp Pulse Resp B/P (MAP) Pulse Ox O2 Delivery O2 Flow Rate FiO2 05/10/17 08:02 80 05/10/17 08:00 96.9 88 18 190/80 (116) 94 05/10/17 04:30 97.3 80 20 128/75 (92) 98 05/10/17 00:15 98.8 74 17 139/76 (97) 98 05/09/17 20:15 98.4 87 18 125/73 (90) 98 05/09/17 16:52 97.9 85 18 160/67 (98) 98 05/09/17 13:10 97.8 79 18 164/73 (103) 98 I/O 05/09/17 05/09/17 05/09/17 05/10/17 05/10/17 05/10/17 07:00 15:00 23:00 07:00 15:00 23:00 Intake Total 650 ml 240 ml 650 ml 550 ml Balance 650 ml 240 ml 650 ml 550 ml Intake Oral 650 ml 240 ml 650 ml 550 ml # Voids 1 2 1 2 # Bowel Movements 2 2 1 1 Result Diagram: 05/10/17 1012 05/09/17 1042 Imaging Last Impressions Carotid Artery Ultrasound 05/09/17 0000 Signed Impressions: Service Date/Time: Tuesday, May 09, 2017 10:01 - CONCLUSION: Mild plaque with no evidence of a hemodynamically significant lesion. Matty Hernandez MD Head Magnetic Resonance Angiography 05/08/171827 Signed Impressions: Service Date/Time: April 19:53 - CONCLUSION: Normal examination. Bakari Lubin MD Brain MRI [id number]/08/171827 Signed Impressions: Service Date/Time: April 19:53 - CONCLUSION: Normal examination. Bakari Lubin MD Head CT 05/08/17 0000 Signed Impressions: Service Date/Time: April 17:05 - CONCLUSION: Normal examination. Tr Alves Jr., MD Objective Remarks General: Elderly female in no acute distress. Heart: Regular rate and rhythm. No murmur. Lungs: Clear to auscultation bilaterally. No wheezes, rales, or rhonchi. Breathing is nonlabored. Abdomen: Soft, nontender, nondistended. Extremities: No lower extremity edema. Psych: Alert and oriented. Neuro: No facial droop noted. Procedures None Urinary Catheter: No Vascular Central Line Catheter: No A/P Problem List: (1) CVA (cerebral vascular accident) ICD Code: I63.9 - Cerebral infarction, unspecified (2) Delirium ICD Code: R41.0 - Disorientation, unspecified (3) Renal insufficiency ICD Code: N28.9 - Disorder of kidney and ureter, unspecified (4) Hypokalemia ICD Code: E87.6 - Hypokalemia (5) HTN (hypertension) ICD Code: I10 - Essential (primary) hypertension (6) H/O total hip arthroplasty ICD Code: Z96.649 - Presence of unspecified artificial hip joint (7) Anemia ICD Code: D64.9 - Anemia, unspecified Assessment and Plan 1. CVA versus TIA: Symptoms improved. Patient reportedly had acute onset of left -sided facial droop. CT and MRI are negative. Appreciate neurology recommendations. Continue PT/OT/ST. 2. Delirium: Possibly medication related versus secondary to underlying TIA. Urinalysis is negative. 3. Renal insufficiency secondary to acute kidney injury: Resolved. 4. Hypokalemia: Supplement potassium orally and in IV fluids. Patient has refused IV potassium. Labs are pending. 5. Hypertension: Allow permissive hypertension at this time. 6. Status post right total hip arthroplasty: Surgery done 04/30/17. Patient is currently at inpatient rehabilitation. Continue physical therapy. 7. Anemia: No apparent active bleeding. H&H stable. 8. DVT prophylaxis: Lovenox. Discharge Planning Discharge to SNF today in stable condition if potassium has improved. Heart healthy diet. Activity as tolerated. Follow up with neurology, PCP, orthopedic surgery. Problem Qualifiers (1) H/O total hip arthroplasty: Qualified Codes: Z96.641 - Presence of right artificial hip joint Edwardo Multani MD May 10, 2017 11:09
--- NOTE | 2017-05-10 11:38 | HHI.PR ---
Subjective Remarks seems back to baseline. Had confusion upon awakening from sleep. Objective Vital Signs Date Time Temp Pulse Resp B/P (MAP) Pulse Ox O2 Delivery O2 Flow Rate FiO2 05/10/17 08:02 80 05/10/17 08:00 96.9 88 18 190/80 (116) 94 05/10/17 04:30 97.3 80 20 128/75 (92) 98 05/10/17 00:15 98.8 74 17 139/76 (97) 98 05/09/17 20:15 98.4 87 18 125/73 (90) 98 05/09/17 16:52 97.9 85 18 160/67 (98) 98 05/09/17 13:10 97.8 79 18 164/73 (103) 98 I/O 05/09/17 05/09/17 05/09/17 05/10/17 05/10/17 05/10/17 07:00 15:00 23:00 07:00 15:00 23:00 Intake Total 650 ml 240 ml 650 ml 550 ml Balance 650 ml 240 ml 650 ml 550 ml Intake Oral 650 ml 240 ml 650 ml 550 ml # Voids 1 2 1 2 # Bowel Movements 2 2 1 1 awake alert oriented,fluent perrla face no droop motor limited right hip from fx/surgery Result Diagram: 05/10/17 1012 05/09/17 1042 Assessment and Plan Assessment and Plan ?tia delirium b12 defieciency ?mild dementia -replace b12 IM only as directed -polypharmacy reduction. f/u with me in 2 wks for f/u . Katt Lucero MD May 10, 2017 11:38
[2017-05-10 11:53] LABS: MAGNESIUM 1.2 MG/DL (1.5-2.5); POTASSIUM 3.2 MEQ/L (3.5-5.1)
[2017-05-10] MEDS ORDERED: POTASSIUM CHLORIDE 10 MEQ CONTROLLED RELEASE TAB PO ONE (12:00)
[2017-05-10] MEDS ORDERED: REME15TA PO (12:02)
[2017-05-10] MEDS ORDERED: VENL75XR PO (12:02)
[2017-05-10] MEDS ORDERED: POTA-163 PO (12:06)
[2017-05-10] MEDS ORDERED: MAGN400T2 PO (12:06)
[2017-05-10] MEDS: MAGNESIUM SULFATE 1 GM PREMIX 100 ML IV SCH ×2 (12:20→13:33)
[2017-05-22] MEDS ORDERED: CYANOCOBALAMIN 1000 MCG/ML VIAL IM SCH (09:00)
[2017-07-12] MEDS ORDERED: CYANOCOBALAMIN 1000 MCG/ML VIAL IM SCH (09:00)
== END 2017-05-10 16:35 | DRG 69 ==
LOC: NEPE 16:53 → NEDA 18:31 → OBSVTOIN 18:51 → N05B 20:21
PROVIDERS: ADMIT Family Medicine; ATTEND Family Medicine
DX: G45.9 Transient cerebral ischemic attack, unspecified (principal); N17.9 Acute kidney failure, unspecified; K50.90 Crohn's disease, unspecified, without complications; F03.90 Unspecified dementia, unspecified severity, without behavioral disturbance, psychotic disturbance, mood disturbance, and anxiety; J44.9 Chronic obstructive pulmonary disease, unspecified; R44.0 Auditory hallucinations; D64.9 Anemia, unspecified; R44.1 Visual hallucinations; R29.810 Facial weakness; E87.6 Hypokalemia; M19.90 Unspecified osteoarthritis, unspecified site; R29.701 NIHSS score 1; I10 Essential (primary) hypertension; E78.5 Hyperlipidemia, unspecified; E03.9 Hypothyroidism, unspecified; F32.9 Major depressive disorder, single episode, unspecified; F41.9 Anxiety disorder, unspecified; Z79.01 Long term (current) use of anticoagulants; Z86.73 Personal history of transient ischemic attack (TIA), and cerebral infarction without residual deficits; Z96.641 Presence of right artificial hip joint
CPT/HCPCS: 70450; 70544; 70551; 80048; 80061; 80307; 81001; 82435; 82550; 82565; 82607; 82947; 82948; 83036; 83735; 84132; 84295; 84443; 84484; 84520; 84702; 85025; 85384; 85610; 85730; 86592; 86850; 86900; 86901; 93005; 93306; 93880; J1650; J3420; J3475; J3480; J7030